=== PATIENT | male | born 1970 | race Caucasian/White ===

== ENCOUNTER 2021-06-04 18:03 | Emergency (ER) | payer BC, SELFPAY ==
[2021-06-04 18:35] VITALS: BP 187/105; PULSE 77; RESP 16; TEMP 36.8; O2SAT 98
--- NOTE | 2021-06-04 20:40 | W.ED.GENADLT ---
HPI - General Adult General: Chief complaint: General Medical Stated complaint: Lt Foot and Lt fingers numb Time Seen by Provider: 06/04/21 20:40 History of Present Illness: HPI narrative: Patient comes in today with complaints of numbness to his left great toe for about 1 to 2 weeks. Patient states that he has been concerned about this for the last 2 weeks but has yet to be seen by a provider. Tonight patient noticed some numbness and tingling in bilateral fingers while thinking about his toe. Patient does admit to having anxiety issues. Patient reports a recent history of a PCP visit R[facility] [place] and was reported to have no significant abnormalities on his exam at that time. Patient appears well tonight. Patient does report a history of cellulitis and peripheral vascular disease. Review of Systems General: Reports: 10 or more systems reviewed and unremarkable except in HPI and below Neuro: Reports: other (Numbness to the left foot.) Physical Exam Const: COMMON NORMALS: no acute distress and patient oriented x3 GENERAL APPEARANCE: cooperative HENMT: COMMON NORMALS: normocephalic and Normal external nose present HEAD & SCALP: normal to inspection and normocephalic NOSE: Normal external nose present MOUTH: Normal oral and palatal mucosa present Eye: GENERAL EYE: appearance normal, both eyes and all related structures Neck/C-Spine: COMMON NORMALS: full ROM Lymph: LYMPHATIC: no lymphadenopathy noted Chest: COMMONS NORMALS: normal inspection of the chest Resp: COMMON NORMALS: normal respiratory effort EFFORT & INSPECTION: Yes able to speak in complete sentences Cardio: COMMON NORMALS: regular rate and regular rhythm RATE: regular rate RHYTHM: regular rhythm GI: COMMON NORMALS: non-tender Back/Pelvis: COMMON NORMALS: thoracic and lumbar spine normal to inspection Extremity: COMMON NORMALS: normal to inspection NARRATIVE EXTREMITY EXAM: Bilateral feet have significant pes planus, pulses are intact, prompt capillary refill is noted. Patient reports numbness to right great toe. Neuro: COMMON NORMALS: patient oriented x3 and moves all extremities Psych: COMMON NORMALS: mental status grossly normal and cooperative Skin: COMMON NORMALS: no rashes or lesions noted GENERAL SKIN EXAM: no rashes or lesions noted Course Vital Signs: Vital signs: Vital Signs Temperature 98.3 F 06/04/21 18:35 Pulse Rate 69 06/04/21 22:00 Respiratory Rate 18 06/04/21 22:00 Blood Pressure 163/106 06/04/21 22:00 Pulse Oximetry 98 06/04/21 22:00 MDM - General Adult MDM Narrative: Medical decision making narrative: Patient comes in today for concerns of left foot numbness. Patient reports about 2 weeks ago he started having numbness in the great toe of the left foot. Over the past 2 weeks it seems to have gotten worse to the point that he is truly worried about it and has had increased anxiety. On exam patient has good pulses in the dorsal pedis. No significant swelling or redness is noted to the feet. Patient has equal strength in all extremities. No focal neural deficits were noted. Vital signs were normal except for some elevation in blood pressure. Differential diagnosis includes but not limited to anxiety, peripheral neuropathy, Winters's neuroma, sciatica, Raynaud's syndrome. Laboratory values were collected and no significant abnormalities were noted except for some sodium running at 132. Patient does report a history of hyponatremia which is chronic for him. Ultrasound of the left lower leg indicated no DVT. CRP was normal. I believe patient probably has a Winters's neuroma or other anatomical problem to his foot due to his pes planus. I would also suggest the patient have neurology for electro conductive evaluation for possible tibial tunnel syndrome versus a lumbar radiculopathy. Lab Data: Labs: Lab Results 06/04/21 06/04/21 21:17 21:17 WBC 4.8 10^3/uL 10^3/ uL (4.0-10.0) RBC 4.29 10^6/uL 10^6 /uL (4.1-5.3) Hgb 13.6 g/dL g/dL (11.7-16.6) Hct 39.6 % L % (42.0-52.0) MCV 92.3 fl fl (80-94) MCH 31.7 pg pg (28.0-34.0) MCHC 34.3 g/dL g/dL (30.0-36.0) RDW 12.5 % % (12.1-15.1) Plt Count 297 10^3/cmm 10^3 /cmm (130-400) MPV 9.2 fL fL (7.4-10.4) Neut % (Auto) 71.3 % % Lymph % (Auto) 18.7 % % Smith % (Auto) 8.6 % % Eos % (Auto) 0.8 % % Baso % (Auto) 0.4 % % Neut # (Auto) 3.38 10^3/uL 10^3 /uL (1.8-7.7) Lymph # (Auto) 0.9 10^3/uL 10^3/ uL (0.8-4.8) Smith # (Auto) 0.4 10^3/uL 10^3/ uL (0.2-0.9) Eos # (Auto) 0.0 10^3/uL 10^3/ uL (0.0-0.8) Baso # (Auto) 0.0 10^3/uL 10^3/ uL (0.0-0.1) Nucleated RBC % (a uto) 0 % % Nucleated RBCs # 0.0 /100WBC /100W BC Sodium 132 mmol/L L mmol /L (136-145) Potassium 4.6 mmol/L mmol/L (3.5-5.1) Chloride 96 mmol/L L mmol/ L (98-107) Carbon Dioxide 23 mmol/L mmol/L (22-29) Anion Gap 17.6 (5-19) BUN 13 mg/dL mg/dL (6-20) Creatinine 0.6 mg/dL L mg/dL (0.7-1.2) GFR Calculation 140.9 mL/min H mL /min (90-130) Glucose 92 mg/dL mg/dL (65-115) Calculated Osmolal ity 274 mOsm/kg L mOs m/kg (285-295) Calcium 8.8 mg/dL mg/dL (8.5-10.5) Total Bilirubin 0.4 mg/dL mg/dL (0.15-1.2) AST 17 U/L U/L (0-40) ALT 18 U/L U/L (0-41) Alkaline Phosphata se 70 IU/L IU/L (40-130) C-Reactive Protein 1.0 mg/L mg/L (0.0-4.9) Total Protein 6.9 g/dL g/dL (6.6-8.7) Albumin 4.5 g/dL g/dL (3.5-5.2) Globulin 2.4 g/dL g/dL (1.3-4.6) Discharge Plan Discharge Patient Disposition: Home Clinical Impression: Numbness of left foot Condition: Stable Discharge Orders: Discharge ED (Routine); Ordered 06/04/21 Ordered By: Crescencio Soliman Discharge Diet: Usual diet Discharge Activity: Increase activity as tolerated Patient Instructions: Paresthesia (ED) Activity Restrictions/Additional Instructions: Home and rest. Activity as tolerated. Continue with routine medications and treatments as directed. Follow-up with primary care as needed. Return to the ER for worsening symptoms or new concerns. Case management will contact you regarding follow-up appointment with typesetting supervisor and neurologist for concerns. Coding Level of Care Code ED Appliance Assembler for [facility] Fwd Exam Comprehensive
[2021-06-04 21:00] VITALS: BP 156/97; PULSE 68; RESP 16; O2SAT 95
--- NOTE | 2021-06-04 21:04 | USR_ITS ---
PROCEDURE INFORMATION: Exam: US Duplex Left Lower Extremity Veins, Limited Exam date and time: 06/04/2021 9:04 PM Age: 51 years old Clinical indication: Condition or disease; Other: History of vasculitis 2019; History of recurrent cellulitis beginning 2012 with 5-10 courses of antibiotics. C/O left foot numbness today. ; Additional info: Numbness, history of vasculitis 2019; History of recurrent cellulitis beginning 2012 with 5-10 courses of antibiotics. No history of dvt per patient. TECHNIQUE: Imaging protocol: Real-time Duplex ultrasound of the Left Lower Extremity with 2-D clark scale, color Doppler flow and spectral waveform analysis with image documentation. Limited exam focused on the left lower extremity veins. COMPARISON: No relevant prior studies available. FINDINGS: Left deep veins: Unremarkable. The common femoral, femoral, proximal profunda femoral and popliteal veins are patent without thrombus. Normal Doppler waveforms. Normal compressibility and/or augmentation response. Left superficial veins: Unremarkable. Saphenofemoral junction is patent without thrombus. Soft tissues: Unremarkable. US/CV venous duplex [facility] [id number] IMPRESSION: No evidence of deep vein thrombosis.
[2021-06-04 21:25] LABS: Basophils % 0.4 %; Eosinophils % 0.8 %; Hematocrit 39.6 % (42.0-52.0); Hemoglobin 13.6 g/dL (11.7-16.6); Lymphocytes # 0.9 10^3/uL (0.8-4.8); Lymphocytes % 18.7 %; Mean Corpuscular HGB Conc 34.3 g/dL (30.0-36.0); Mean Corpuscular Hemoglobin 31.7 pg (28.0-34.0); Mean Corpuscular Volume 92.3 fl (80-94); Mean Platelet Volume 9.2 fL (7.4-10.4); Monocytes # 0.4 10^3/uL (0.2-0.9); Monocytes % 8.6 %; Neutrophils # 3.38 10^3/uL (1.8-7.7); Neutrophils % 71.3 %; Nucleated Red Blood Cells % 0 %; Platelet Count 297 10^3/cmm (130-400); Red Blood Count 4.29 10^6/uL (4.1-5.3); Red Cell Distribution Width 12.5 % (12.1-15.1); White Blood Count 4.8 10^3/uL (4.0-10.0)
[2021-06-04 21:44] LABS: Alanine Aminotransferase 18 U/L (0-41); Albumin Level 4.5 g/dL (3.5-5.2); Alkaline Phosphatase 70 IU/L (40-130); Anion Gap 17.6 (5-19); Aspartate Amino Transferase 17 U/L (0-40); Blood Urea Nitrogen 13 mg/dL (6-20); Calcium 8.8 mg/dL (8.5-10.5); Carbon Dioxide 23 mmol/L (22-29); Chloride 96 mmol/L (98-107); Globulin 2.4 g/dL (1.3-4.6); Glomerular Filtration Rate 140.9 mL/min (90-130); Glucose 92 mg/dL (65-115); Osmolality Calculated 274 mOsm/kg (285-295); Potassium 4.6 mmol/L (3.5-5.1); Sodium 132 mmol/L (136-145); Total Bilirubin 0.4 mg/dL (0.15-1.2); Total Protein 6.9 g/dL (6.6-8.7)
[2021-06-04 22:00] VITALS: BP 163/106; PULSE 69; RESP 18; O2SAT 98
--- NOTE | 2021-06-05 08:31 | DCPLANNER ---
Addendum entered by Velia Mckinnon 06/05/21 08:36: natural resources manager also had message to schedule a follow up appointment for patient with neurology. natural resources manager emailed patients information to the neurology clinic. Patients information will be printed for review. Clinic will call patient with appointment information. Original Note: natural resources manager had message to schedule a follow up appointment for patient with ortho. natural resources manager called the ortho clinic, spoke with Diane, gave clinic patients information. natural resources manager was told that patients information would be printed and reviewed. Clinic will call patient with appointment information.
--- NOTE | 2021-06-07 07:15 | DCPLANNER ---
Patient has a follow up appointment scheduled for Saturday, July 18, 2020 at 10:[address] Laguerre. Clinic will call patient with appointment information.
--- NOTE | 2021-06-07 07:22 | DCPLANNER ---
Addendum entered by Velia Mckinnon 09/21/21 12:50: Patient had a follow up appointment scheduled with Dr. Verde office - appointment was cancelled. Addendum entered by Velia Mckinnon 08/02/21 16:52: Patient had a follow up appointment scheduled for 07.18.21 with neurology - appointment was rescheduled for 09.17.21. Addendum entered by Velia Mckinnon 08/02/21 16:22: Patient had a follow up appointment scheduled for 07.25.21 with ortho - this appointment was rescheduled. Original Note: Patient has a follow up appointment scheduled for Saturday, July 25, 2020 at 10:[address] Munoz at ortho. Clinic will call patient with appointment information.
== END 2021-06-04 22:33 | disposition home or self-care (01) ==
PROVIDERS: Emergency Provider Nurse Practitioner Family
DX: R20.0 Anesthesia of skin (principal)
CPT/HCPCS: 80053; 85025; 86140; 93971; 99283

== ENCOUNTER → 2022-10-09 15:47 | Outpatient (BNVA) | payer BC, SELFPAY | PROVIDERS: Visit Provider Podiatrist Foot & Ankle Surgery | DX: M77.51 Other enthesopathy of right foot and ankle (principal); M77.42 Metatarsalgia, left foot; Z87.39 Personal history of other diseases of the musculoskeletal system and connective tissue | CPT/HCPCS: 73610 ==

== ENCOUNTER 2023-11-15 01:48 | Emergency (ER) | payer BC, SELFPAY ==
[2023-11-15 01:57] VITALS: BP 184/96; PULSE 74; RESP 13; O2SAT 99; BMI 27.1
[2023-11-15 03:00] VITALS: BP 175/112; PULSE 79; RESP 16; O2SAT 99
[2023-11-15 03:00] LABS: Basophils % 0.6 %; Eosinophils % 0.8 %; Hematocrit 34.5 % (37-53); Lymphocytes % 19.9 %; Mean Corpuscular HGB Conc 35.9 g/dL (30-55); Mean Corpuscular Hemoglobin 32.2 pg (27-33); Mean Corpuscular Volume 89.6 fl (82-101); Monocytes # 0.4 10^3/uL (0.2-0.9); Neutrophils % 71.7 %; Nucleated Red Blood Cells % 0 %; Platelet Count 297 10^3/cmm (157-399); Red Blood Count 3.85 10^6/uL (3.85-5.65); Red Cell Distribution Width 12.4 % (12.1-15.1); White Blood Count 5.02 10^3/uL (3.29-11.43)
--- NOTE | 2023-11-15 03:07 | CTR_ITS ---
PROCEDURE INFORMATION: Exam: CT Abdomen And Pelvis With Contrast Exam date and time: 11/15/2023 3:41 AM Age: 53 years old Clinical indication: Abdominal pain; Patient HX: C/O epigastric pain. History of umbilical hernia. ; Additional info: Epigastric abdominal pain TECHNIQUE: Imaging protocol: Computed tomography of the abdomen and pelvis with contrast. Radiation optimization: All CT scans at this facility use at least one of these dose optimization techniques: automated exposure control; mA and/or kV adjustment per patient size (includes targeted exams where dose is matched to clinical indication); or iterative reconstruction. Contrast material: OMNI 350; Contrast volume: 100 ml; Contrast route: INTRAVENOUS (IV); COMPARISON: [place] [id number] 06/04/2021 9:37 PM RADIATION DOSE METRICS: Total DLP (mGy-cm): 560.16 FINDINGS: Lungs: Few foci of atelectasis of the lung bases is seen. Heart: Base of heart is unremarkable as visualized. Liver: Normal. No mass. Gallbladder and bile ducts: Normal. No calcified stones. No ductal dilation. Pancreas: Mild fatty atrophy of the pancreas. Spleen: Few splenules are noted. Adrenal glands: Normal. No mass. Kidneys and ureters: lobulation of the bilateral kidneys are seen. Bilateral extrarenal pelves. Stomach and bowel: Unremarkable. No obstruction. No mucosal thickening. Appendix: No evidence of appendicitis. Intraperitoneal space: Unremarkable. No free air. No significant fluid collection. Vasculature: Few scattered foci of calcified atherosclerotic disease is noted. Calcified pelvic phleboliths are noted. Lymph nodes: Unremarkable. No enlarged lymph nodes. Urinary bladder: Urinary bladder is significantly distended with wall thickening and mild surrounding inflammatory change. Reproductive: Prostate appears enlarged. Bones/joints: Diffuse degenerative change of the visualized osseous structures, mild. Soft tissues: Midline ventral superior periumbilical hernia is seen and measures 7.2 x 3.0 x 9.3 cm. The fascial defect measures 5.6 x 2.8 cm. Within the hernia sac is a loop of small bowel which is not dilated, however is fluid-filled and demonstrates mild thickening of the grimm. CT/CT abdomen pelvis w con* [id number] IMPRESSION: 1. Midline ventral superior periumbilical hernia with mild inflamed loop of bowel, however no evidence of obstruction. Further details above. 2. Findings concerning for cystitis with possible bladder outlet obstruction. Correlate with laboratory findings and physical exam. 3. Prostatomegaly. Correlate with PSA.
[2023-11-15] MEDS: ondansetron 2 mg/ML SDV 2 mL 4 MG IVP (03:13)
[2023-11-15] MEDS: LORazepam 2 mg/mL INJ 10 mL MDV 1 MG IVP (03:18)
[2023-11-15 03:20] LABS: Alanine Aminotransferase 26 U/L (0-41); Albumin Level 4.3 g/dL (3.5-5.2); Alkaline Phosphatase 58 U/L (40-130); Anion Gap 14.2 (5-19); Aspartate Amino Transferase 23 U/L (0-40); Blood Urea Nitrogen 9 mg/dL (6-20); Calcium 8.7 mg/dL (8.5-10.5); Carbon Dioxide 25 mmol/L (22-29); Chloride 87 mmol/L (98-107); Creatinine Clr Calc Pharmacy 139.7225; Globulin 2.5 g/dL (1.3-4.6); Glomerular Filtration Rate 117.1 mL/min (90-130); Glucose 100 mg/dL (65-115); Lipase 22 U/L (13-60); Osmolality Calculated 253 mOsm/kg (285-295); Potassium 4.2 mmol/L (3.5-5.1); Sodium 122 mmol/L (136-145); Total Bilirubin 0.5 mg/dL (0.15-1.2); Total Protein 6.8 g/dL (6.6-8.7)
[2023-11-15 03:20] LABS: Add Urine Microscopic? NO; Charge for UA Resulting for Rev
--- NOTE | 2023-11-15 03:31 | ED_ITS ---
HPI - Abdominal Pain 2 General: Chief Complaint: Abdominal Pain Stated Complaint: severe abd pain alternating Time Seen by Provider: 11/15/23 02:53 History of Present Illness: 53-year-old male gentleman with no prior history of belly surgery. He presents with generalized abdominal pain for the last 3 to 4 days. He states that he has a history of IBS, and takes Linzess for this. He has been using a proton pump inhibitor with some relief. He notes a foul taste in his mouth at times. Associated Symptoms: Reports nausea; Denies chills, diarrhea, fever(s), hematuria, melena and vomiting Review of Systems 2 General: Denies: 10 or more systems reviewed and unremarkable except in HPI and below Const: Denies: fever(s) or chills ENMT: Denies: throat pain Card: Denies: chest pain GI: Reports: abdominal pain and nausea; Denies: vomiting, diarrhea or melena : Denies: difficulty urinating or hematuria Physical Exam 2 Const: COMMON NORMALS: no acute distress GENERAL APPEARANCE: cooperative; not ill appearing and not frail appearing HENMT: COMMON NORMALS: normocephalic, atraumatic and Normal external nose present HEAD & SCALP: normocephalic and atraumatic FACE & SINUS: normal facial exam and face symmetric NOSE: Normal external nose present Eye: COMMON NORMALS: Equal, round and reactive pupils present and EOMs intact bilaterally PUPIL: Yes Equal, round and reactive pupils present Neck/C-Spine: GENERAL: Yes trachea midline Chest: CHEST: Yes Symmetrical chest wall rise Resp: COMMON NORMALS: normal respiratory effort, No retractions, No use of accessory muscles and clear to auscultation bilaterally AUSCULTATION: clear to auscultation bilaterally Cardio: COMMON NORMALS: regular rate and regular rhythm RATE: regular rate RHYTHM: regular rhythm GI: COMMON NORMALS: Normal to inspection, nondistended, normoactive bowel sounds present PALPATION: Yes Tenderness to palpation present (GI) (epigastric) Details: LLQ Extremity: COMMON NORMALS: no pedal edema Neuro: MISSY COMA SCALE: document GCS findings [place] coma scale eye opening: Spontaneous [place] coma scale verbal response: Orientated Missy coma scale motor response: Obey commands Missy coma scale total score: 15 S ENSORY EXAM: Yes extremities (intact) Psych: COMMON NORMALS: speech normal SPEECH: Yes normal speech Skin: COMMON NORMALS: no rashes or lesions noted GENERAL SKIN EXAM: no rashes or lesions noted Course 2 Vital Signs: Vital signs: Vital Signs Pulse Rate 76 11/15/23 05:19 Respiratory Rate 16 11/15/23 05:19 Blood Pressure 159/104 11/15/23 05:19 Pulse Oximetry 97 11/15/23 05:19 Oxygen Delivery Me thod Room Air 11/15/23 01:57 MDM - Abdominal Pain Medical Decision Making The patient is moderately hypertensive. White blood cell count is 5. CRP is 3. Sodium is 122, which is significantly low for this patient. However, he seems to be mentating well, essentially normally. he relates to me that he has had chronic low sodium levels. Urinalysis is negative. Abdominal CT reveals a ventral supra umbilical hernia with some mild inflammation in the bowel contained within the hernia. There is no obstruction. Could be causing his pain. There is mention of potential cystitis with bladder outlet obstruction, but the patient has a negative, completely clean urinalysis. We will treat the patient for enteritis and have him follow-up closely as an outpatient. He will need sodium rechecked as well at the beginning of the week. Lab Data 11/15/23 02:54 11/15/23 02:54 Labs/Radiology: Radiology Impressions Abdomen/Pelvis CT 11/15/23 03:07 IMPRESSION: 1. Midline ventral superior periumbilical hernia with mild inflamed loop of bowel, however no evidence of obstruction. Further details above. 2. Findings concerning for cystitis with possible bladder outlet obstruction. Correlate with laboratory findings and physical exam. 3. Prostatomegaly. Correlate with PSA. Laboratory Results WBC 5.02 10^3/uL (3.29-11.43) 11/15/23 02:54 RBC 3.85 10^6/uL (3.85-5.65) 11/15/23 02:54 Hgb 12.40 g/dL (11.27-16.99) 11/15/23 02:54 Hct 34.5 % (37-53) L 11/15/23 02:54 MCV 89.6 fl (82-101) 11/15/23 02:54 MCH 32.2 pg (27-33) 11/15/23 02:54 MCHC 35.9 g/dL (30-55) 11/15/23 02:54 RDW 12.4 % (12.1-15.1) 11/15/23 02:54 Plt Count 297 10^3/cmm (157-399) 11/15/23 02:54 MPV 9.0 fL (7.4-10.4) 11/15/23 02:54 Neut % (Auto) 71.7 % 11/15/23 02:54 Lymph % (Auto) 19.9 % 11/15/23 02:54 Creek % (Auto) 7.0 % 11/15/23 02:54 Eos % (Auto) 0.8 % 11/15/23 02:54 Baso % (Auto) 0.6 % 11/15/23 02:54 Neut # (Auto) 3.60 10^3/uL (1.8-7.7) 11/15/23 02:54 Lymph # (Auto) 1.0 10^3/uL (0.8-4.8) 11/15/23 02:54 Creek # (Auto) 0.4 10^3/uL (0.2-0.9) 11/15/23 02:54 Eos # (Auto) 0.0 10^3/uL (0.0-0.8) 11/15/23 02:54 Baso # (Auto) 0.0 10^3/uL (0.0-0.1) 11/15/23 02:54 Nucleated RBC % (auto) 0 % 11/15/23 02:54 Nucleated RBCs # 0.0 /100WBC 11/15/23 02:54 Sodium 122 mmol/L (136-145) L 11/15/23 02:54 Potassium 4.2 mmol/L (3.5-5.1) 11/15/23 02:54 Chloride 87 mmol/L (98-107) L 11/15/23 02:54 Carbon Dioxide 25 mmol/L (22-29) 11/15/23 02:54 Anion Gap 14.2 (5-19) 11/15/23 02:54 BUN 9 mg/dL (6-20) 11/15/23 02:54 Creatinine 0.7 mg/dL (0.7-1.2) 11/15/23 02:54 GFR Calculation 117.1 mL/min (90-130) 11/15/23 02:54 Glucose 100 mg/dL (65-115) 11/15/23 02:54 Calculated Osmolality 253 mOsm/kg (285-295) L 11/15/23 02:54 Calcium 8.7 mg/dL (8.5-10.5) 11/15/23 02:54 Total Bilirubin 0.5 mg/dL (0.15-1.2) 11/15/23 02:54 AST 23 U/L (0-40) 11/15/23 02:54 ALT 26 U/L (0-41) 11/15/23 02:54 Alkaline Phosphatase 58 U/L (40-130) 11/15/23 02:54 C-Reactive Protein 3.0 mg/L (0.0-4.9) 11/15/23 02:54 Total Protein 6.8 g/dL (6.6-8.7) 11/15/23 02:54 Albumin 4.3 g/dL (3.5-5.2) 11/15/23 02:54 Globulin 2.5 g/dL (1.3-4.6) 11/15/23 02:54 Lipase 22 U/L (13-60) 11/15/23 02:54 Urine Color Colorless (Yellow) 11/15/23 03:08 Urine Appearance Clear (CLEAR) 11/15/23 03:08 Urine pH 7 (5-7) 11/15/23 03:08 Ur Specific Addis 1.005 (1.005-1.030) 11/15/23 03:08 Urine Protein Neg (Negative) 11/15/23 03:08 Urine Glucose (UA) Norm (Normal) 11/15/23 03:08 Urine Ketones Negative (Negative) 11/15/23 03:08 Urine Blood Neg (Negative) 11/15/23 03:08 Urine Nitrate Negative (Negative) 11/15/23 03:08 Urine Bilirubin Neg (Negative) 11/15/23 03:08 Urine Urobilinogen Neg mg/dL (Negative) 11/15/23 03:08 Ur Leukocyte Esterase Negative (Negative) 11/15/23 03:08 All radiology interpretation(s) finalized by discharge Discharge Plan Discharge Patient Disposition: Home Clinical Impression: Acute hyponatremia, Hernia, ventral, Enteritis Condition: Stable Prescriptions: New hydrocodone-acetaminophen 5-325 mg tablet 1 tab PO Q8H PRN (Reason: pain) Qty: 7 0RF ondansetron 4 mg tablet,disintegrating 4 mg PO Q6H PRN (Reason: nausea and vomiting) Qty: 14 0RF metronidazole 500 mg tablet 500 mg PO TID Qty: 7 0RF Discharge Orders: Discharge ED (Routine); Ordered 11/15/23 Ordered By: Emmanuel Kwok Patient Instructions: Opioid Safety, Pain Management Activity Restrictions/Additional Instructions: Antibiotics as directed. Pain and nausea medication as needed. Follow a clear liquid diet for the next 24 hours. Advance as tolerated. Return for worsening pain despite treatment, fever greater than 100 despite treatment, vomiting liquids or medications, blood in the stool, any other concerning symptoms. See your doctor next week. You will require repeat sodium testing, as your sodium level was quite low here. Coding Level of Care Code ED Dirt Contractor for [facility] Beebe
[2023-11-15 03:36] LABS: Urine Appearance Clear (CLEAR); Urine Color Colorless (Yellow); pH Urine 7 (5-7)
[2023-11-15 03:37] LABS: Bilirubin Urine Neg (Negative); Blood Urine Neg (Negative); Glucose Urine UA Norm (Normal); Ketones Urine Negative (Negative); Leukocyte Esterase Urine Negative (Negative); Nitrate Urine Negative (Negative); Protein Urine Neg (Negative); Specific Gravity, Urine 1.005 (1.005-1.030); Urobilinogen Urine Neg (Negative)
[2023-11-15] MEDS: iohexol 350 mg/mL 500 mL Btl (per mL) IV (03:42)
[2023-11-15 04:12] VITALS: BP 158/101; PULSE 77; RESP 16; O2SAT 96
[2023-11-15 04:44] VITALS: BP 180/108; PULSE 90; RESP 18; O2SAT 97
[2023-11-15 05:19] VITALS: BP 159/104; PULSE 76; RESP 16; O2SAT 97
== END 2023-11-15 05:30 | disposition home or self-care (01) ==
PROVIDERS: Emergency Provider Emergency Medicine
DX: K43.9 Ventral hernia without obstruction or gangrene (principal); K52.9 Noninfective gastroenteritis and colitis, unspecified; E87.1 Hypo-osmolality and hyponatremia
CPT/HCPCS: 74177; 80053; 81003; 83690; 85025; 86140; 96374; 96375; 99285; J2060; J2405; Q9967

== ENCOUNTER 2024-11-22 09:16 | Inpatient (IN) | payer BC, SELFPAY ==
[2024-11-22] VITALS (7 sets, daily range): BP systolic 77–248; BP diastolic 44–146; PULSE 73–107; RESP 16–24; TEMP 37.3–37.5; O2SAT 95–98; BMI 32.5
--- NOTE | 2024-11-22 09:37 | XRR_ITS ---
PROCEDURE INFORMATION: Exam: XR Chest Exam date and time: 11/22/2024 9:39 AM Age: 54 years old Clinical indication: Other: AMS TECHNIQUE: Imaging protocol: Radiologic exam of the chest. Views: 1 view. COMPARISON: CT abdomen pelvis w con* [id number] 11/15/2023 3:41 AM FINDINGS: Lungs: Unremarkable. No consolidation. Pleural spaces: Unremarkable. No pleural effusion. No pneumothorax. Heart/Mediastinum: Unremarkable. No cardiomegaly. Bones/joints: Unremarkable. XR/XR chest 1V portable [id number] IMPRESSION: No acute findings.
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
--- NOTE | 2024-11-22 09:43 | CTR_ITS ---
PROCEDURE INFORMATION: Exam: CT Head Without Contrast Exam date and time: 11/22/2024 10:24 AM Age: 54 years old Clinical indication: Psychosis or psychotic disorder; Unspecified; Additional info: AMS TECHNIQUE: Imaging protocol: Computed tomography of the head without contrast. Radiation optimization: All CT scans at this facility use at least one of these dose optimization techniques: automated exposure control; mA and/or kV adjustment per patient size (includes targeted exams where dose is matched to clinical indication); or iterative reconstruction. COMPARISON: No relevant prior studies available. RADIATION DOSE METRICS: Total DLP (mGy-cm): 1209.18 FINDINGS: Brain: Normal. No hemorrhage. Unremarkable white matter. No mass effect. Cerebral ventricles: No ventriculomegaly. Paranasal sinuses: Visualized sinuses are unremarkable. No fluid levels. Mastoid air cells: Visualized mastoid air cells are well aerated. Bones: Unremarkable. No acute fracture. Soft tissues: Unremarkable. CT/CT head wo con* [id number] IMPRESSION: No acute intracranial abnormality.
[2024-11-22 09:56] LABS: Basophils % 0.3 %; Eosinophils % 0.3 %; Hematocrit 32.8 % (37-53); Lymphocytes # 0.7 10^3/uL (0.8-4.8); Lymphocytes % 9.9 %; Mean Corpuscular HGB Conc 34.5 g/dL (30-55); Mean Corpuscular Hemoglobin 31.5 pg (27-33); Mean Corpuscular Volume 91.4 fl (82-101); Mean Platelet Volume 9.2 fL (7.4-10.4); Monocytes # 0.6 10^3/uL (0.2-0.9); Neutrophils # 6.03 10^3/uL (1.8-7.7); Neutrophils % 81.4 %; Nucleated Red Blood Cells % 0 %; Platelet Count 304 10^3/cmm (157-399); Red Blood Count 3.59 10^6/uL (3.85-5.65); Red Cell Distribution Width 12.9 % (12.1-15.1)
[2024-11-22 10:12] LABS: Alanine Aminotransferase 28 U/L (0-41); Albumin Level 4.7 g/dL (3.5-5.2); Alkaline Phosphatase 81 U/L (40-130); Anion Gap 18.9 (5-19); Aspartate Amino Transferase 49 U/L (0-40); Blood Urea Nitrogen 12 mg/dL (6-20); Calcium 9.6 mg/dL (8.5-10.5); Carbon Dioxide 24 mmol/L (22-29); Chloride 93 mmol/L (98-107); Creatinine Clr Calc Pharmacy 116.8025; Globulin 2.8 g/dL (1.3-4.6); Glomerular Filtration Rate 87.3 mL/min (90-130); Glucose 95 mg/dL (65-115); Osmolality Calculated 274 mOsm/kg (285-295); Potassium 3.9 mmol/L (3.5-5.1); Sodium 132 mmol/L (136-145); Total Bilirubin 0.7 mg/dL (0.15-1.2); Total Protein 7.5 g/dL (6.6-8.7)
[2024-11-22 10:22] LABS: Acetaminophen < 5.0 ug/mL (10-30); Alcohol Level < 10 mg/dL (0-10); Salicylate < 0.3 mg/dL (3-10)
[2024-11-22] MEDS: hyDRALAzine 20 mg/mL INJ 1 mL 10 MG IVP (10:44)
[2024-11-22] MEDS: CLONazepam 0.5 mg Tablet PO (11:00)
[2024-11-22 11:19] LABS: Bilirubin Urine Negative (Negative); Blood Urine Negative (Negative); Glucose Urine UA Trace (Normal); Ketones Urine Trace (Negative); Leukocyte Esterase Urine Negative (Negative); Nitrate Urine Negative (Negative); Protein Urine Negative (Negative); Specific Gravity, Urine 1.008 (1.005-1.030); Urine Appearance Clear (CLEAR); Urine Color Yellow (Yellow); Urobilinogen Urine 0.2 mg/dL (Negative); pH Urine 6.5 (5-7)
[2024-11-22 11:22] LABS: Add Urine Microscopic? YES; Bacteria Urine None Seen /hpf; Hyaline Casts Urine 2.05 /lpf; RBC Urine 0-2 /hpf (0-2); Squamous Epithelial Cell Urine 0-5 /hpf (0-5); WBC Urine 0-5 /hpf (0-5)
--- NOTE | 2024-11-22 11:23 | PC.NURSE ---
96 hr rights reviewed with pt @1042 with assistance of [facility] business practices officer Saad. All education reviewed with pt. Pt verbalized want to speak with an emergency contact. HS explained that once he has been medically cleared and moved to new room, he would have access to a phone. Pt copy was left with patient @bedside. Pt changed out into green paper scrubs, and urine collected for labs. No further needs at this time.
[2024-11-22 11:28] LABS: Amphetamines Screen Urine Negative (Negative); Barbiturates Screen Urine Negative (Negative); Benzodiazepines Screen Urine Positive (Negative); Cocaine Screen Urine Negative (Negative); Opiate Screen Urine Negative (Negative); PCP Screen Urine Negative (Negative); THC Screen Urine Negative (Negative)
[2024-11-22] MEDS: metoprolol tartrate 1 mg/1 mL SDV 5 mL 5 MG IVP (11:43)
[2024-11-22] MEDS: amlodipine 5 mg Tablet PO (13:25)
--- NOTE | 2024-11-22 15:20 | PC.ADMIT ---
[email or web address] [facility] Admission Note:Pt has a flight of ideas and rambles random words. If you ask him a question he will attempt to answer you, but usually goes off on another story. He jumps several stories and rambles words. His admission was kept short. He has elevated blood pressure, see mar for meds given in ER. Dr. Shin will be following the pt here on the floor according to ER. ER reports from that he has been awake for days. The patient,Lencho Barger,54 y/o, was given written information regarding hospital policies, unit procedures and contact persons. Patient's smoking status: . Vital Signs - 8 hr 11/22/24 09:33 11/22/24 10:56 11/22/24 11:44 Temperature 99.5 F Pulse Rate 105 H 107 H 99 Respiratory Rate 24 H Blood Pressure 248/146 182/101 179/108 Pulse Oximetry 95 98 96 Oxygen Delivery Method 11/22/24 12:00 11/22/24 13:27 11/22/24 14:05 Temperature Pulse Rate 83 90 90 Respiratory Rate 16 Blood Pressure 177/91 168/105 155/95 Pulse Oximetry 96 96 97 Oxygen Delivery Method Room Air 11/22/24 14:05 11/22/24 14:07 Temperature 99.2 F Pulse Rate 91 Respiratory Rate 18 Blood Pressure 143/90 Pulse Oximetry 96 Oxygen Delivery Method Room Air Room Air
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
--- NOTE | 2024-11-22 18:52 | PC.NURSE ---
V/O from Dr. hWeat for pt to do an oral b52.
[2024-11-22] MEDS: LORazepam 2 mg Tablet PO (18:58)
[2024-11-22] MEDS: haloperidol 5 mg Tablet PO (18:58)
[2024-11-22] MEDS: diphenhydrAMINE 50 mg Capsule PO (18:58)
[2024-11-23 06:00] VITALS: BP 134/91; PULSE 95; RESP 19; TEMP 37.2; O2SAT 99
[2024-11-23 09:57] VITALS: BP 134/91
[2024-11-23] MEDS: losartan 50 mg Tablet PO (09:57)
--- OUTSIDE RECORDS SUMMARY | 2024-11-23 11:55 | XMS_ITS | Encounter Summary ---
Author Organization [facility] [employer] Address [address] [place] [address] Care Team Providers Care Manager Creative Services Name Role Phone Norma Calvo MD, Esteban Araiza Primary Care Provider [phone]- [phone] Encounter Details Date Type Department Care Team (Late st Contact Info) Description 04/24/2020 Specialty Pharmacy [facility] [place] [address] [address] Teodora Cosby, PHARMACIST [address] [place] [id number] Social History Tobacco Use Types Packs/Day Years Used Date Smoking Tobacco: Never Alcohol Use Standard Drinks/Week Comments Yes 0 (1 standard drink = 0.6 oz pur e alcohol) Sex and Gender Information Value Date Recorded Sex Assigned at Not on file 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
--- OUTSIDE RECORDS SUMMARY | 2024-11-23 11:56 | XMS_ITS | Clinical Summary ---
Author Organization [facility] Address [address] [place]: Epic Prelude ADT [place] [address] Care Team Providers Care Technician Chemical Cleaning Name Role Phone Norma Calvo MD, Esteban Araiza Primary Care Provider [phone]- [phone] Allergies Active Allergy Reactions Criticality Noted Date Comments Ciprofloxacin Other (See Comments) 10/08/2016 Visual disturbance, weakness, GI disturbance, mental disturbace Ibuprofen Swelling,Other (See Comments) High 10/07/2017 Eye swelling,difficulty breathing Levofloxacin Nausea and Vomiting Low 07/17/2011 Moxifloxacin Nausea and Vomiting Low 06/06/2023 Medications temazepam (RESTORIL) 15 mg capsule Take 30 mg by mouth nightly as needed for Insomnia. 6 Active fluticasone propionate 50 mcg/actuation nasal spray,suspension Administer 2 Sprays in each nostril daily. Active OMEPRAZOLE ORAL Take 1 Capsule by mouth 1 time daily as needed. Active melatonin 3 mg Tablet Take 2 Tablets (6 mg) by mouth nightly as needed for Insomnia. 30 Tablet 1 3 Active risperiDONE (RisperDAL) 1 mg tablet Take 1 Tablet (1 mg) by mouth daily at bedtime. 30 Tablet 3 Active amLODIPine (Norvasc) 10 mg tablet Take 1 Tablet (10 mg) by mouth daily. 30 Tablet 2 3 Active linaCLOtide (LINZESS) 145 mcg capsuleIndication s:Chronic idiopathic constipation Take 1 Capsule (145 mcg) by mouth daily before breakfast. 90 Capsule 1 11/08/2024 11:41 AM CDT 03/23/20 25 Active Active Problems Problem Noted Date Diagnosed Date Ramona 07/19/2022 Hyponatremia 07/18/2022 Altered behavior 07/18/2022 Chronic idiopathic constipation 02/18/2020 Encounters Date Type Department Care Team Description 11/17/2024 External Device Data [facility]STRACTION Provider, Abstract 11/16/2024 External Device Data [facility]CTION Provider, Abstract 11/02/2024 External Device Data [facility] Provider, Abstract 10/26/2024 External Device Data [facility]STRACTION Provider, Abstract 09/15/2024 External Device Data [facility]STRACTION Provider, Abstract 09/07/2024 External Device Data [facility] ABSTRACTION Provider, Abstract 09/07/2024 External Device Data [facility] ABSTRACTION Provider, Abstract 08/31/2024 External Device Data [facility] ABSTRACTION Provider, Abstract from Last 3 Months Immunizations Immunization Administration Dates Next Due (ADACEL/BOOSTRIX)(10 YR UP) TDAP VACCINE, 0.5ML, IM 09/02/2010 Social History Tobacco Use Types Packs/Day Years Used Date Smoking Tobacco: Never Tobacco Cessation:Counseling Given: Not Answered Alcohol Use Standard Drinks/Week Comments Not Currently 0 (1 standard drink = 0.6 oz pur e alcohol) Feeling Safe Answer Date Recorded Are you in a relationship wi th someone who hurts you emotionally and/or physically? 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 Gender Identity Not on file Sexual Orientation Not on file Last Filed Vital Signs Vital Sign Reading Time Taken Comments Blood Pressure 156/89 02/16/2024 9:00 AM CDT Pulse 77 02/16/2024 9:00 AM CDT Temperature 36.4 C (97.6 F) 02/16/2024 9:00 AM CDT Respiratory Rate 16 02/16/2024 9:00 AM CDT Oxygen Saturation 98% 02/16/2024 9:00 AM CDT Inhaled Oxygen Concentration - - Weight 82.1 kg (181 lb) 02/15/2024 3:26 AM CDT Height 182.9 cm (6') 02/15/2024 3:26 AM CDT Body Mass Index 24.55 02/15/2024 3:26 AM CDT Plan of Treatment Upcoming Encounters Date Type Department Care Team (Late st Contact Info) Description 12/21/2024 2:30 PM CDT Telephone Check Up [facility] [place] [address] [place] [address] Larissa Coombs PA-C [address] [place] [address] Health Maintenance Due Date Last Done Comments HEPATITIS B VACCINES (1 of 3 - 19+ 3-dose series) 11/1986 COLORECTAL SCREENING 2013 Colorectal Cancer Screening 2013 FIT-DNA Q 3 years 2013 FIT/FOBT Q 1 year 2013 Flex Sig/CT Colonography Q 5 years 2013 ZOSTER VACCINE (1 of 2) 2018 DTAP/TDAP/TD VACCINES (2 - Td or Tdap) 09/02/2020 INFLUENZA VACCINE (#1) 2024 Insurance [facility] link bird * Guarantor: LADAN FABIAN Account Type Relation to Patient Date of Phone Billing Address Personal/Family [address] [place] [address] RX [facility] Commercial RX [employer] Commercial [facility] [employer] ACCESS Advance Directives For more information, please contact: [phone] * Default Full Code - Needs Discussion (Latest Code Status on File) Date Activated Date Inactivated Comments 02/16/2024 7:19 AM 02/16/2024 2:35 PM * Full Code Date Activated Date Inactivated Comments 07/18/2022 5:17 AM 07/21/2022 5:57 PM Care Teams Technician Chemical Cleaning Relationship Specialty Start Date End Date Esteban Green Jr., MD [address] [place] [id number] PCP - General Family Practice 01/21/18
--- OUTSIDE RECORDS SUMMARY | 2024-11-23 11:56 | XMS_ITS | Encounter Summary ---
Author Organization [facility] Address [address] [place] [address] Care Team Providers Care Special Skills Officer Name Role Phone Norma Calvo MD, Esteban Araiza Primary Care Provider [phone]- [phone] Encounter Details Date Type Department Care Team (Late st Contact Info) Description 11/17/2024 External Device Data [facility] ABSTRACTION Provider, Abstract NO ADDRESS ON FILE Social History Tobacco Use Types Packs/Day Years Used Date Smoking Tobacco: Never Alcohol Use Standard Drinks/Week Comments Not Currently 0 (1 standard drink = 0.6 oz pur e alcohol) Feeling Safe Answer Date Recorded Are you in a relationship wi th someone who hurts you emotionally and/or physically? 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 [facility] [address] [place] [address] Larissa Coombs PA-C [address] [facility] [address] [place] [address] documented as of this encounter Visit Diagnoses Not on filedocumented in this encounter Care Teams Special Skills Officer Relationship Specialty Start Date End Date Esteban Green Jr., MD [address] [place] [id number] PCP - General Family Practice 01/21/18 documented as of this encounter
--- OUTSIDE RECORDS SUMMARY | 2024-11-23 11:56 | XMS_ITS | Clinical Summary ---
Author Organization [facility] Address [address] [place] [address] Phone Care Team Providers Care Binding Nicker Name Role Phone Norma Calvo MD, Esteban Araiza Primary Care Provider [phone]- [phone] Allergies Active Allergy Reactions Criticality Noted Date Comments Ciprofloxacin Other (See Comments) 10/08/2016 Visual disturbance, weakness, GI disturbance, mental disturbace Ibuprofen Swelling,Other (See Comments) High 10/07/2017 Eye swelling,difficulty breathing Levofloxacin Nausea and Vomiting Low 07/17/2011 Medications FLUTICASONE PROPIONATE (FLONASE BOTH NOSTRIL) Administer in each nostril. Active OMEPRAZOLE ORAL Take by mouth 1 time daily as needed . Active temazepam (RESTORIL) 15 mg capsule Take 30 mg by mouth nightly as needed for Insomnia. Active linaCLOtide (LINZESS) 145 mcg capsuleIndication s:Chronic idiopathic constipation Take 1 Capsule (145 mcg) by mouth daily before breakfast. 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 Gender Identity Not on file Sexual Orientation Not on file Last Filed Vital Signs Vital Sign Reading Time Taken Comments Blood Pressure 187/103 08/24/2020 3:26 PM INSPECTOR TUBES Pulse 95 08/24/2020 3:26 PM INSPECTOR TUBES Temperature 37.1 C (98.8 F) 12/30/2019 11:23 AM CDT Respiratory Rate 20 12/30/2019 11:23 AM CDT Oxygen Saturation 97% 12/30/2019 11:23 AM CDT Inhaled Oxygen Concentration - - Weight 90.7 kg (200 lb) 08/24/2020 3:26 PM INSPECTOR TUBES Height 182.9 cm (6') 08/24/2020 3:26 PM INSPECTOR TUBES Body Mass Index 27.12 08/24/2020 3:26 PM INSPECTOR TUBES Plan of Treatment Health Maintenance Due Date Last Done Comments HEPATITIS B VACCINES (1 of 3 - 19+ 3-dose series) 11/1986 COLORECTAL SCREENING 2013 Colorectal Cancer Screening 2013 FIT-DNA Q 3 years 2013 FIT/FOBT Q 1 year 2013 Flex Sig/CT Colonography Q 5 years 2013 ZOSTER VACCINE (1 of 2) 2018 DTAP/TDAP/TD VACCINES (2 - Td or Tdap) 09/02/2020 INFLUENZA VACCINE (#1) 2024 Insurance RX [facility] Commercial RX [employer] Commercial Care Teams Binding Nicker Relationship Specialty Start Date End Date Esteban Green Jr., MD PCP - General Family Practice 01/21/18
--- OUTSIDE RECORDS SUMMARY | 2024-11-23 11:56 | XMS_ITS | Encounter Summary ---
Author Organization [facility] Address 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 Gender Identity Not on file Sexual Orientation Not on file documented as of this encounter Plan of Treatment Upcoming Encounters Date Type Department Care Team (Late st Contact Info) Description 12/21/2024 2:30 PM CDT Telephone Check Up [facility]- [place] [address] [address] [facility] [address] [place] [address] Larissa Coombs PA-C [address] [facility] [address] [place] [address] documented as of this encounter Visit Diagnoses Not on filedocumented in this encounter Care Teams Flour Distributor Relationship Specialty Start Date End Date Esteban Green Jr., MD [address] [place] [phone] PCP - General Family Practice 01/21/18 documented as of this encounter
--- OUTSIDE RECORDS SUMMARY | 2024-11-23 11:56 | XMS_ITS | Patient Health Record ---
Author Organization [facility] Address [address] [place] [address] Care Team Providers Care Electronic Design Engineer Name Role Phone Crescencio Gongora Primary Care Provider Reason For Referral No Information Plan Of Treatment No Information
--- OUTSIDE RECORDS SUMMARY | 2024-11-23 11:56 | XMS_ITS | Encounter Summary ---
Author Organization [facility] Address [address] [place] [address] Care Team Providers Care Internet Database Specialist Name Role Phone Norma Calvo MD, Esteban Araiza Primary Care Provider [phone]- [phone] Reason for Referral * Outpatient Services (Routine) - Closed Specialty Diagnoses / Procedures Referred By Contderik t Referred To Contact Diagnoses Abdominal pain, unspecified abdominal location Procedures NM HEPATOBILIARY SCAN NM HEPATOBIL W PHARM INTERV Paul Dawson MD [address] [place] [phone] Phone: tel: fax: [facility] Pre-Registration [place] CALL TO MAKE APPOINTMENT ONLY [address] [place] [address] Phone: tel: fax: Referral ID Status Reason Start Date Expiration Date V isits Requested Visits Authorized [id number] Closed [facility] TO SCHEDULE ([facility]) 02/12/2018 03/15/2019 1 1 Encounter Details Date Type Department Care Team (Late st Contact Info) Description 05/13/2018 Ancillary Orders 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 No common bile duct obstruction. This laboratory has been accredited by the Intersocietal Commission for the Accreditation of Nuclear Medicine Laboratories (IAC Nuclear/PET). Narrative 05/13/2018 5:18 PM REAL ESTATE BROKER NM HEPATOBILIARY SCAN HISTORY: abd pain COMPARISON: PROCEDURE: Following the intravenous administration of 5.5 mCi of technetium 99m Choletec, planar images of the abdomen were obtained in anterior projection for 60 minutes. 8 oz of Ensure Plus was given. FINDINGS: The liver parenchyma shows normal concentration of tracer. Tracer accumulation in the common bile duct and gallbladder starts being visualized by 10 minutes of imaging. Tracer accumulation in the small bowel starts being visualized by 60 minutes of imaging.Gallbladder region of interest time-activity curve derived ejection fraction is 91%, with normal being greater than 35%. Procedure Note Daniel Beaulieu MD - 05/13/2018 NM HEPATOBILIARY SCAN HISTORY: abd pain COMPARISON: PROCEDURE: Following the intravenous administration of 5.5 mCi of technetium 99m Choletec, planar images of the abdomen were obtained in anterior projection for 60 minutes. 8 oz of Ensure Plus was given. FINDINGS: The liver parenchyma shows normal concentration of tracer. Tracer accumulation in the common bile duct and gallbladder starts being visualized by 10 minutes of imaging. Tracer accumulation in the small bowel starts being visualized by 60 minutes of imaging.Gallbladder region of interest time-activity curve derived ejection fraction is 91%, with normal being greater than 35%. IMPRESSION: No evidence of acute or chronic cholecystitis. No common bile duct obstruction. This laboratory has been accredited by the Intersocietal Commission for the Accreditation of Nuclear Medicine Laboratories (IAC Nuclear/PET). us Paul Dawson MD NM ORDERABLES Final R esult documented in this encounter Visit Diagnoses Diagnosis Abdominal pain, unspecified abdominal location Abdominal pain, unspecified abdominal location documented in this encounter Care Teams Internet Database Specialist Relationship Specialty Start Date End Date Esteban Green Jr., MD PCP - General Family Practice 01/21/18 documented as of this encounter
--- NOTE | 2024-11-23 13:00 | W.PM.NPUH&PS ---
Providers/Chief Complaint Admitting Physician: Munir Wheat MD Chief Complaint: MHE TONJA HPI NPU History of Present Illness Lencho Barger is a 54 year old male who presented to the emergency department with the following report: HPI - Psych General: Chief Complaint: Psychiatric Symptoms Stated Complaint: RANIE TONJA Time Seen by Provider: 11/22/24 09:18 Source: patient and EMS Mode of arrival: EMS Limitations: altered mental status History of Present Illness: Patient is a 54-year-old male presents to ED today via EMS for mental health evaluation. Upon arrival patient is acutely psychotic hide no history can essentially be derived from him. His speech is excessive, pressured, extremely tangential, illogical. Looking at previous documentation, he was here for a medical related complaint about a week or so ago. I was able to contact his mother who stated that over the past few days he has been very paranoid thinking that somebody is outside their home at night. He is thinking that his phone got scammed and is now being tracked. She states that he has been talking 90 miles an hour and has not slept in several days. Mother seems to think he has maybe had one similar episode to which she was hospitalized at [facility]. He has no known/diagnosed psychiatric illnesses that she is aware of and does not take any psychiatric medication. Mother does state he takes a lot of non-prescription medication . [facility] records were obtained and it looks like patient was there back in 01/2024 for almost identical symptoms. Documentation states he was hyperverbal, tangential, hyperactive, fidgety with reported insomnia. He was extremely hypertensive at that visit as well. Looking at previous vital signs here, patient has a longstanding history of chronic hypertension. He was admitted to the neuropsychiatric unit for definitive treatment of those issues. Though he has been a difficult historian as staff reports significant difficulties with his ability to tell a story and maintain calm and not be hyper energized. Ultimately he received as needed medication this morning prior to shift change due to him being so distraught and hyperkinetic and intrusive. He was somewhat tired and had to be awoken for his evaluation at on multiple attempts. He presented with a negative UDS and no medical signs to explain his mostly manic state. Once he was awoken he told a fairly disconnected story as reported below: Chief complaint Severe anxiety and insomnia following a distressing experience of feeling unsafe and isolated for several days. History of the present complaint The patient reports experiencing a severe sense of fear and anxiety, which has kept them awake for approximately 3 to 4 days. This fear was exacerbated by the loss of cellular and landline phone service, leaving them unable to call for help or drive to safety due to sleep deprivation. The patient describes constant automotive activity around their residence, which heightened their sense of insecurity and contributed to ongoing panic and alarm. These circumstances led to significant anxiety and unease, culminating in a feeling of being unsafe. The patient mentions staying with their mother, who cannot drive, and expresses concern about their own ability to drive safely due to sleep loss. They recount a situation where they felt compelled to stay awake for several days due to the perceived threat and lack of communication options. The patient did not voluntarily come to the hospital; they were placed on a hold, although they are unsure who initiated it, suspecting it might have been their mother. The patient has a history of a previous psychiatric hospital admission in January of the previous year. This admission followed the of their father in March 2023, which was described as agonizing and devastating. The loss was particularly difficult due to the close relationship with their father, whom they regarded as a central figure in their life. Following this loss, the patient stayed with their mother, experiencing a dark and grieving period marked by feelings of instability. The patient reports having rapid speech and discussing various topics quickly when under severe duress and sleeplessness. This has occurred only under extreme circumstances since 2022. They describe feeling exhausted due to medication given during the current hospitalization and note dehydration since being admitted. The patient has not been working for some time but typically would return to [place] for work or other activities. They survive financially through an investment account. The patient has no history of marriage or biological children but has had serious relationships. 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 The patient identifies as Samaritan and is a person of joey. They have no history of addiction, smoking, drinking, or marijuana use. They report that rapid speech occurs only under extreme duress and sleeplessness, which has happened since 2022 following significant stressors such as the loss of their father. Mental health history Reported a previous hospitalization in a psychiatric facility in January 2024. Experienced significant emotional distress following the of father in March 2023, which was described as a life-altering trauma. No history of psychiatric hospitalizations prior to 2022. Rapid speech and heightened anxiety noted during periods of severe stress and sleep deprivation, first occurring in 2022. No history of addiction, smoking, drinking, or cannabis use. No current psychiatric medications. Social history Staying with mother since the loss of father in March 2023. No employment mentioned, but survives on an investment account. No history of marriage or biological children. 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 Identifies as a [employer]ar[place] and a person of joey. No history of addiction, smoking, drinking, or cannabis use. No service. No explicit mention of exercise or diet. Meds NPU Home Medications ?Medication ?Instructions ?Recorded ?Confirmed ?Last Taken ?Type hydroxyzine HCl 25 mg tablet 25 mg PO QID PRN Anxiety 11/22/24 11/22/24 Unknown History linaclotide 145 mcg capsule 145 mcg PO DAILY 11/22/24 11/22/24 Unknown History (Linzess) losartan 50 mg tablet 50 mg PO DAILY 11/22/24 11/22/24 Unknown History temazepam 15 mg capsule 30 mg PO BEDTIME 11/22/24 11/22/24 Unknown History Allergies Allergy/AdvReac Type Severity Reaction Status Date / Time moxifloxacin (From Avelox) Allergy Severe rash, Verified 04/10/23 16:18 dizziness, difficulty breathing ciprofloxacin (From Cipro) Allergy ALGY-Difficulty Verified 04/10/23 16:12 Swallowing ibuprofen Allergy ALGY-Swell Verified 04/10/23 16:12 Lip/Tongue/Throat levofloxacin Allergy ALGY-Difficulty Verified 04/10/23 16:12 Swallowing Mental Status Exam MSE Comments: This is an overweight versus obese white male in hospital scrubs with limited grooming and eye contact. No abnormal movements except for psychomotor agitation. Cooperative with exam in moderate distress. Speech was increased rate and volume and somewhat pressured. Mood described as somewhat down about the loss of his father but otherwise tired, affect congruent and slightly energized. Thought process organized. Thought content: Patient denied suicidal or homicidal ideation, there were no delusions noted or reported, but he did express some reports of circumstances surrounding his admission that seem they could be delusional in nature, he denied current auditory or visual hallucinations but reported some automotive activity outside of his house that led him to have some concerns about safety. Stressors include the of his father and his mother being alone and he reports needing some assistance from him. Reports severe anxiety and unease, contributing to sleeplessness for 3 to 4 days. Stressors include loss of cellular and landline service, automotive activity around residence, and recent bereavement of father in March 2023. Exhibits rapid speech and talking about many different things quickly under severe duress. Attention and concentration were limited and memory was mostly reliable but no more formally tested. He is alert and oriented times person and place. Insight, judgment and impulse control were limited versus impaired.] Vitals/I&O/Wt Last Vital Signs Temp 98.9 F 11/23/24 06:00 Pulse 95 11/23/24 06:00 Resp 19 H 11/23/24 06:00 BP 134/91 11/23/24 09:57 Pulse Ox 99 11/23/24 06:00 O2 Del Method Room Air 11/23/24 06:00 Weight last 48 hrs Weight 108.862 kg Data NPU 11/22/24 09:50 11/22/24 09:50 A&P Assessment and plan (1) Acute psychosis: (2) Jayro: (3) Bereavement: Plan This is a 55-year-old white male with a reported history of mental health challenges that he endorses started around the time his father . He reports that these episodes have been mostly related to him being sleep deprived and then having some kind of response to that. He presents today reporting that he has not slept in about 4 days secondary to some strange circumstances. We discussed him seeming to have presented in jayro which is required him to receive as needed medication because he is gotten so worked up. No addiction issues reported. 1. Consider mood stabilizer for likely jayro 2. Continue every 15 minute checks for safety. 3. Encourage individual, group and milieu therapies. 4. Get collateral information. 5. Evaluate against the backdrop of the 96-hour hold. PDMP PDMP Reviewed: Not Reviewed Involuntary Hold Information Hold Status: Legal Status: 96 Hour Hold Date/Time Hold Expires: 11/29/24 1201 Attestations NPU Medical Necessity Statement*: Inpatient hospitalization is medically necessary and the clinically appropriate intervention at this time. We will monitor/initiate medications and make changes as indicated. Patient will be in the hospital for over 2 midnights. Likely length of stay 5-7 days. Coding Level of Care Code Acute Code for Chg Fwd Diagnoses Acute psychosis F23 Jayro F30.9 Bereavement Z63.4
[2024-11-23 14:00] VITALS: BP 151/86; PULSE 75; RESP 18; O2SAT 99
[2024-11-23 20:13] VITALS: BP 98/57; PULSE 71; RESP 18; TEMP 37.3; O2SAT 98
[2024-11-24] MEDS: hyDROXYzine 25 mg Capsule 50 MG PO (00:27)
[2024-11-24 06:00] VITALS: BP 154/97; PULSE 86; RESP 17; TEMP 37.4; O2SAT 95
[2024-11-24 08:56] VITALS: BP 154/97
[2024-11-24] MEDS: losartan 50 mg Tablet PO (08:56)
[2024-11-24] MEDS: blistex lip oint 7 gm Tube 1 APPLIC TOPICAL (09:01)
[2024-11-24 14:00] VITALS: BP 150/119; PULSE 72; RESP 16; TEMP 36.7; O2SAT 97
[2024-11-24] MEDS: pantoprazole DR 40 mg Tablet PO ×2 (14:15→17:58)
[2024-11-24 14:31] VITALS: BP 154/96
--- NOTE | 2024-11-24 17:13 | P.NPUPN_ITS ---
Subjective NPU 2 Subjective: Patient presented today reporting that he is doing all right. He continued to be somewhat tangential per staff reports and direct observation. When asked the question he takes the long road home and generally does not get home. 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 However he was evasive about how he got to the point he is at now where he is taking care of his mom and not working blaming it on his mom's needs. When asked about how he was able to manage financially he never got around to explaining how he went from working to not working. He continues to be resistant to medication. Mental Status Exam 2 MSE Comments: This is an overweight versus obese white male in hospital scrubs with limited grooming and eye contact. No abnormal movements except for psychomotor agitation. Cooperative with exam in moderate distress. Speech was increased rate and volume and somewhat pressured. Mood described as somewhat down about the loss of his father but otherwise tired, affect congruent and slightly energized. Thought process organized. Thought content: Patient denied suicidal or homicidal ideation, there were no delusions noted or reported, but he did express some reports of circumstances surrounding his admission that seem they could be delusional in nature, he denied current auditory or visual hallucinations but reported some automotive activity outside of his house that led him to have some concerns about safety. Stressors include the of his father and his mother being alone and he reports needing some assistance from him. Reports severe anxiety and unease, contributing to sleeplessness for 3 to 4 days. Stressors include loss of cellular and landline service, automotive activity around residence, and recent bereavement of father in March 2023. Exhibits rapid speech and talking about many different things quickly under severe duress. Attention and concentration were limited and memory was mostly reliable but no more formally tested. He is alert and oriented times person and place. Insight, judgment and impulse control were limited versus impaired.] Vitals/I&O/Wt Last Vital Signs Temp 98.1 F 11/24/24 14:00 Pulse 72 11/24/24 14:00 Resp 16 11/24/24 14:00 BP 154/96 11/24/24 14:31 Pulse Ox 97 11/24/24 14:00 O2 Del Method Room Air 11/24/24 14:00 Data NPU 11/22/24 09:50 11/22/24 09:50 A&P Assessment and plan (1) Acute psychosis: (2) Ramona: (3) Bereavement: Plan This is a 55-year-old white male with a reported history of mental health challenges that he endorses started around the time his father . He reports that these episodes have been mostly related to him being sleep deprived and then having some kind of response to that. He presents today reporting that he has not slept in about 4 days secondary to some strange circumstances. We discussed him seeming to have presented in ramona which is required him to receive as needed medication because he is gotten so worked up. No addiction issues reported. 1. Consider mood stabilizer for likely ramona 2. Continue every 15 minute checks for safety. 3. Encourage individual, group and milieu therapies. 4. Get collateral information. 5. Evaluate against the backdrop of the 96-hour hold. PDMP PDMP Reviewed: Not Reviewed Involuntary Hold Information 2 Hold Status: Legal Status: 96 Hour Hold Date/Time Hold Expires: 11/29/2024 @ 0001 Attestations NPU 2 Medical Necessity Statement*: Inpatient hospitalization is medically necessary and the clinically appropriate intervention at this time. We will monitor/initiate medications and make changes as indicated. Likely length of stay 4-6 days. Coding Level of Care Code Acute Code for [facility] Fwd Diagnoses Acute psychosis F23 Ramona F30.9 Bereavement Z63.4
[2024-11-24 20:19] VITALS: BP 127/61; PULSE 84; RESP 17; TEMP 37.3; O2SAT 99
[2024-11-24] MEDS: temazepam 15 mg Capsule 30 MG PO (20:49)
--- NOTE | 2024-11-24 20:59 | PC.NURSE ---
Pt. refused Trazodone and Vistaril. Signee wasted medication.
[2024-11-25] VITALS (7 sets, daily range): BP systolic 149–197; BP diastolic 88–112; PULSE 67–82; RESP 16–20; TEMP 36.8–37.2; O2SAT 98–99
--- NOTE | 2024-11-25 08:10 | PC.NURSE ---
LIMITED NURSING ASSESSMENT R/T PATIENT ASLEEP IN BED IN ROOM, NURSING AND HEAT ENGINEERING TEACHER TO ROOM TO ASK PATIENT TO ARISE FOR BREAKFAST. RESP EVEN ET UNLABORED NO S/S OF DISTRESS NOTED. NURSING STAFF WILL REASSESS PATIENT WHEN HE WAKES
[2024-11-25 09:14] LABS: Alanine Aminotransferase 19 U/L (0-41); Albumin Level 4.1 g/dL (3.5-5.2); Alkaline Phosphatase 74 U/L (40-130); Anion Gap 14.6 (5-19); Aspartate Amino Transferase 21 U/L (0-40); Blood Urea Nitrogen 8 mg/dL (6-20); Calcium 9.2 mg/dL (8.5-10.5); Carbon Dioxide 27 mmol/L (22-29); Chloride 99 mmol/L (98-107); Creatinine Clr Calc Pharmacy 116.8025; Globulin 2.7 g/dL (1.3-4.6); Glomerular Filtration Rate 87.3 mL/min (90-130); Glucose 107 mg/dL (65-115); Osmolality Calculated 281 mOsm/kg (285-295); Potassium 4.6 mmol/L (3.5-5.1); Sodium 136 mmol/L (136-145); Thyroid Stimulating Hormone 0.88 uIU/mL (0.27-4.20); Total Bilirubin 0.4 mg/dL (0.15-1.2); Total Protein 6.8 g/dL (6.6-8.7)
[2024-11-25] MEDS: losartan 50 mg Tablet PO (11:03)
--- NOTE | 2024-11-25 11:05 | PC.NURSE ---
refused scheduled meds Protonix and Linzess. patient stated he couldn't take Linzess because he had already eaten breakfast, and stated the Protonix should be on an as needed basis and he didn't feel like his acid level was off at the moment
[2024-11-25] MEDS: pantoprazole DR 40 mg Tablet PO (16:13)
[2024-11-25] MEDS: hyDRALAzine 10 mg Tablet PO (16:39)
--- NOTE | 2024-11-25 16:42 | PC.NURSE ---
prn Hydralazine 10 mg given po per pt elevated blood pressure of 199/120
--- NOTE | 2024-11-25 17:02 | P.NPUPN_ITS ---
Subjective NPU 2 Subjective: Patient presented today reporting a desire to leave. He continued to be quite guarded per staff reports and direct observation. Simple questions led to long discourse is secondary to his guardedness per staff reports and direct communication. At 1 point in the interview he talked about feeling like some people were trying to take advantage of him and his mother since his father's and he was very secretive and not wanting to say what kind of people of these were like family members or neighbors excetra. And then this commercial real estate underwriter ask if he had any siblings and he got very upset and said he did not want to talk about that subject. He wondered why this commercial real estate underwriter would ask a question like that. We discussed the fact that it asking about family make up as a question that is asked of every patient that enters this unit the same as when I asked him about his employment history and he was very guarded and said he did not understand the line of questioning. He continues to be resistant to any medication trial. Mental Status Exam 2 MSE Comments: This is an overweight versus obese white male in hospital scrubs with limited grooming and eye contact. No abnormal movements except for psychomotor agitation. Cooperative with exam in moderate distress. Speech was increased rate and volume and somewhat pressured. Mood described as somewhat down about the loss of his father but otherwise tired, affect congruent and slightly energized. Thought process organized. Thought content: Patient denied suicidal or homicidal ideation, there were no delusions noted or reported, but he did express some reports of circumstances surrounding his admission that seem they could be delusional in nature, he denied current auditory or visual hallucinations but reported some automotive activity outside of his house that led him to have some concerns about safety. Stressors include the of his father and his mother being alone and he reports needing some assistance from him. Reports severe anxiety and unease, contributing to sleeplessness for 3 to 4 days. Stressors include loss of cellular and landline service, automotive activity around residence, and recent bereavement of father in March 2023. Exhibits rapid speech and talking about many different things quickly under severe duress. Attention and concentration were limited and memory was mostly reliable but no more formally tested. He is alert and oriented times person and place. Insight, judgment and impulse control were limited versus impaired.] Vitals/I&O/Wt Last Vital Signs Temp 98.9 F 11/25/24 14:00 Pulse 72 05/29/25 14:00 Resp 16 11/25/24 14:00 BP 190/112 11/25/24 14:00 Pulse Ox 98 11/25/24 14:00 O2 Del Method Room Air 11/25/24 14:00 Data NPU 11/22/24 09:50 11/25/24 08:35 A&P Assessment and plan (1) Acute psychosis: (2) Ramona: (3) Bereavement: Plan This is a 55-year-old white male with a reported history of mental health challenges that he endorses started around the time his father . He reports that these episodes have been mostly related to him being sleep deprived and then having some kind of response to that. He presents today reporting that he has not slept in about 4 days secondary to some strange circumstances. We discussed him seeming to have presented in ramona which is required him to receive as needed medication because he is gotten so worked up. No addiction issues reported. 1. Consider mood stabilizer for likely ramona 2. Continue every 15 minute checks for safety. 3. Encourage individual, group and milieu therapies. 4. Get collateral information. 5. Evaluate against the backdrop of the 96-hour hold. PDMP PDMP Reviewed: Not Reviewed Involuntary Hold Information 2 Hold Status: Legal Status: 96 Hour Hold Date/Time Hold Expires: 11/29/2024 @ 0001 Attestations NPU 2 Medical Necessity Statement*: Inpatient hospitalization is medically necessary and the clinically appropriate intervention at this time. We will monitor/initiate medications and make changes as indicated. Likely length of stay 2-5 days. Coding Level of Care Code Acute Code for [facility] Fwd Diagnoses Acute psychosis F23 Ramona F30.9 Bereavement Z63.4
[2024-11-25] MEDS: losartan 50 mg Tablet 25 MG PO (17:57)
--- NOTE | 2024-11-25 19:31 | PC.NURSE ---
Pt. anxious to DC. Signee asked pt. about his sister and if signee could get her and talk with her. Pt. became very paranoid wanting to know what it was about and said I just don't want any answer to go against me. Signee informed pt. that was fine if he did not want to answer, but pt. kept bringing it back up wanting to know why anyone would want to talk to his sister about him.
--- NOTE | 2024-11-25 19:35 | PC.NURSE ---
BOOM BOSS reported that pt. wanted to report to someone that a staff member was asking inappropriate questions about his sister. Pt. told BOOM BOSS that [place], but pt.'s sister was here today visiting him.
--- NOTE | 2024-11-25 19:43 | PC.NURSE ---
Signee called Dr. Crowley to report BP of 197/105 after receiving a 10mg dose of hydralazine and [place]. Dr. Crowley gave the order to give a one x dose of Hydralazine 25mg PO now.
[2024-11-25] MEDS: hyDRALAzine 25 mg Tablet PO (20:05)
--- NOTE | 2024-11-25 20:06 | PC.NURSE ---
After informing the of his high BP and the one time order for hydralazine 25mg PO. Pt. was very reluctant to take the pill wanting to know other options it became a 15-20 min ordeal. Another nurse had to come over and help calm pt. down. Another pt. also informed pt. that they took this medication and it was completely safe.
[2024-11-25] MEDS: temazepam 15 mg Capsule 30 MG PO (22:06)
--- NOTE | 2024-11-25 22:07 | PC.NURSE ---
pt. refused the trazodone. Signee wasted the medication
[2024-11-26 06:00] VITALS: BP 168/101; PULSE 76; RESP 18; TEMP 37.3; O2SAT 98
[2024-11-26 07:00] VITALS: BP 168/101
[2024-11-26] MEDS: NON-FORMULARY MEDICATION (Linaclotide [Linzess] 145 mcg capsule) 145 EACH PO (07:00)
[2024-11-26] MEDS: losartan 50 mg Tablet PO (07:00)
[2024-11-26] MEDS: pantoprazole DR 40 mg Tablet PO ×2 (07:00→17:11)
--- NOTE | 2024-11-26 07:20 | PC.NURSE ---
pt requesting medication administration early today.
--- NOTE | 2024-11-26 08:37 | P.NPUPN_ITS ---
Subjective NPU 2 Subjective: Patient presented today reporting he is doing okay. He continues to be eccentric and give reference to things that seem much higher than they are. He attach that significance to being moved from the north side to the south side abruptly and with no clear warning or reason. We discussed the fact that people are moved from rooms to different rooms all the time just dealing with the logistics and changes of the mill you and the patient population through gender and things of that nature but he just went on about how strange it was that this change was made. Identified for him that is not strange is just been probably new and odd for him that it happened and that it had not happened prior to today. He continues to deny any need for medication. Mental Status Exam 2 MSE Comments: This is an overweight versus obese white male in hospital scrubs with limited grooming and eye contact. No abnormal movements except for psychomotor agitation. Cooperative with exam in moderate distress. Speech was increased rate and volume and somewhat pressured. Mood described as somewhat down about the loss of his father but otherwise tired, affect congruent and slightly energized. Thought process organized. Thought content: Patient denied suicidal or homicidal ideation, there were no delusions noted or reported, but he did express some reports of circumstances surrounding his admission that seem they could be delusional in nature, he denied current auditory or visual hallucinations but reported some automotive activity outside of his house that led him to have some concerns about safety. Stressors include the of his father and his mother being alone and he reports needing some assistance from him. Reports severe anxiety and unease, contributing to sleeplessness for 3 to 4 days. Stressors include loss of cellular and landline service, automotive activity around residence, and recent bereavement of father in March 2023. Exhibits rapid speech and talking about many different things quickly under severe duress. Attention and concentration were limited and memory was mostly reliable but no more formally tested. He is alert and oriented times person and place. Insight, judgment and impulse control were limited versus impaired.] Vitals/I&O/Wt Last Vital Signs Temp 99.1 F 11/26/24 06:00 Pulse 76 11/26/24 06:00 Resp 18 11/26/24 06:00 BP 168/101 11/26/24 07:00 Pulse Ox 98 11/26/24 06:00 O2 Del Method Room Air 11/26/24 06:00 Data NPU 11/22/24 09:50 11/25/24 08:35 A&P Assessment and plan (1) Acute psychosis: Patient currently being admitted to the neuro psychiatry unit for acute psychosis. (2) Chronic hypertension: Patient's blood pressure is currently better controlled after having received multiple medications in the emergency room as noted above. Hold off on any further medications today Resume home dose of losartan 50 mg p.o. daily starting tomorrow morning. Will make further treatment decisions based on blood pressure trend on home dose of losartan Suspect that currently high blood pressures may be related to noncompliance with medications recently. (3) Ramona: (4) Bereavement: Plan This is a 55-year-old white male with a reported history of mental health challenges that he endorses started around the time his father . He reports that these episodes have been mostly related to him being sleep deprived and then having some kind of response to that. He presents today reporting that he has not slept in about 4 days secondary to some strange circumstances. We discussed him seeming to have presented in ramona which is required him to receive as needed medication because he is gotten so worked up. No addiction issues reported. 1. Consider mood stabilizer for likely ramona 2. Continue every 15 minute checks for safety. 3. Encourage individual, group and milieu therapies. 4. Get collateral information. 5. Evaluate against the backdrop of the 96-hour hold. 6. Submitted 21-day hold paperwork. PDMP PDMP Reviewed: Not Reviewed Involuntary Hold Information 2 Hold Status: Legal Status: 96 Hour Hold Date/Time Hold Expires: 11/29/2024 @ 0001 Attestations NPU 2 Medical Necessity Statement*: Inpatient hospitalization is medically necessary and the clinically appropriate intervention at this time. We will monitor/initiate medications and make changes as indicated. Likely length of stay 2-5 days. Coding Level of Care Code Acute Code for [facility] Fwd Diagnoses Acute psychosis F23 Chronic hypertension I10 Ramona F30.9 Bereavement Z63.4
[2024-11-26 14:00] VITALS: BP 198/117; PULSE 69; RESP 16; TEMP 36.6; O2SAT 98
--- NOTE | 2024-11-26 14:03 | P.PN_ITS ---
Subjective 2 Subjective: Patient's chart has been reviewed. His blood pressure yesterday evening was as high as 190/110. Patient was ordered for hydralazine, however he stated he preferred to take extra doses of losartan IV and try a new medication. He received an extra dose of 25 mg losartan. This morning his blood pressure was 168/101. Medications: Reviewed: Yes Vitals/I&O/Wt Last Vital Signs Temp 99.1 F 11/26/24 06:00 Pulse 76 11/26/24 06:00 Resp 18 11/26/24 06:00 BP 168/101 11/26/24 07:00 Pulse Ox 98 11/26/24 06:00 O2 Del Method Room Air 11/26/24 06:00 Physical Exam 2 Narrative: General: No acute distress HEENT: PERRLA, pupils bilaterally equal and reactive, pallors not present Chest: Normal vesicular breath sounds, no added sounds, equal good air entry bilaterally CVS: S1-S2 regular, no murmurs, no tachycardia, no gallops, no rubs Abdomen: Soft, nontender, no organomegaly, bowel sounds present Neuro: No focal neurological deficits. Data 11/22/24 09:50 11/25/24 08:35 A&P Assessment and plan (1) Acute psychosis: Patient currently being admitted to the neuro psychiatry unit for acute psychosis. (2) Chronic hypertension: Patient's blood pressure is currently better controlled after having received multiple medications in the emergency room as noted above. Hold off on any further medications today Resume home dose of losartan 50 mg p.o. daily starting tomorrow morning. Will make further treatment decisions based on blood pressure trend on home dose of losartan Suspect that currently high blood pressures may be related to noncompliance with medications recently. Plan November 26, 2024 Patient is currently on losartan 50 mg p.o. daily in keeping with his home dosing. Per review of blood pressure charting, prior to yesterday his evening blood pressures were as low as 99-100 systolic. Therefore hesitant to increase the dose of losartan. As needed hydralazine has been ordered for systolic blood pressure greater than 160, however it is very difficult to convince patient to take the hydralazine as he is suspicious of having new medications added on it. He does not want to try amlodipine as he reports prior side effects of dry cough with this medicine. Discussed with him potentially starting nifedipine as an alternative. Currently he seems amenable to trial of nifedipine therefore this has been ordered for p.m. use for systolic blood pressure greater than 150. Will continue to monitor patient's blood pressure charting and make further adjustments as necessary. PDMP PDMP Reviewed: Not Reviewed Attestations 2 Medical Necessity Statement*: Per admitting Coding Level of Care Code Acute Code for [facility] Fwd Diagnoses Acute psychosis F23 Chronic hypertension I10
[2024-11-26] MEDS: NIFEdipine ER (24 hr) 30 mg Tablet PO (16:41)
[2024-11-26 19:55] VITALS: BP 157/97; PULSE 87; RESP 20; O2SAT 97
[2024-11-26] MEDS: temazepam 15 mg Capsule 30 MG PO (22:09)
[2024-11-27 05:29] VITALS: RESP 16
[2024-11-27 08:47] VITALS: BP 157/97
[2024-11-27] MEDS: losartan 50 mg Tablet PO (08:47)
--- NOTE | 2024-11-27 11:19 | P.NPUPN_ITS ---
Subjective NPU 2 Subjective: Patient presented today reporting that things are going all right. He identified that he had been guarded with telling this group underwriter basic pieces of information that were being requested. We discussed some of his history at length as far as his concerns for family dynamics and he revealed a clear indication that there have been at least some concerns by his father about his having some disability because any inheritance that he receives would be managed by a trust. This flies in the face of some of the stories he is told which suggested that he was trading stocks and things like that. He was able to identify that he has a lot of shame about being less functional than his age and intelligence would suggest. But then he was very resistant to the idea that there was anything going on with him. Continued to be resistant to medication. Mental Status Exam 2 MSE Comments: This is an overweight versus obese white male in hospital scrubs with limited grooming and eye contact. No abnormal movements except for psychomotor agitation. Cooperative with exam in moderate distress. Speech was increased rate and volume and somewhat pressured. Mood described as somewhat down about the loss of his father but otherwise tired, affect congruent and slightly energized. Thought process organized. Thought content: Patient denied suicidal or homicidal ideation, there were no delusions noted or reported, but he did express some reports of circumstances surrounding his admission that seem they could be delusional in nature, he denied current auditory or visual hallucinations but reported some automotive activity outside of his house that led him to have some concerns about safety. Stressors include the of his father and his mother being alone and he reports needing some assistance from him. Reports severe anxiety and unease, contributing to sleeplessness for 3 to 4 days. Stressors include loss of cellular and landline service, automotive activity around residence, and recent bereavement of father in March 2023. Exhibits rapid speech and talking about many different things quickly under severe duress. Attention and concentration were limited and memory was mostly reliable but no more formally tested. He is alert and oriented times person and place. Insight, judgment and impulse control were limited versus impaired.] Vitals/I&O/Wt Last Vital Signs Temp 97.9 F 11/26/24 14:00 Pulse 87 11/26/24 19:55 Resp 16 11/27/24 05:29 BP 157/97 11/27/24 08:47 Pulse Ox 97 11/26/24 19:55 O2 Del Method Room Air 11/26/24 14:00 Data NPU 11/22/24 09:50 11/25/24 08:35 A&P Assessment and plan (1) Acute psychosis: Patient currently being admitted to the neuro psychiatry unit for acute psychosis. (2) Chronic hypertension: Patient's blood pressure is currently better controlled after having received multiple medications in the emergency room as noted above. Hold off on any further medications today Resume home dose of losartan 50 mg p.o. daily starting tomorrow morning. Will make further treatment decisions based on blood pressure trend on home dose of losartan Suspect that currently high blood pressures may be related to noncompliance with medications recently. (3) Ramona: (4) Bereavement: Plan This is a 55-year-old white male with a reported history of mental health challenges that he endorses started around the time his father . He reports that these episodes have been mostly related to him being sleep deprived and then having some kind of response to that. He presents today reporting that he has not slept in about 4 days secondary to some strange circumstances. We discussed him seeming to have presented in ramona which is required him to receive as needed medication because he is gotten so worked up. No addiction issues reported. Patient more forthcoming with information and has clearly been limited in his ability to take care of himself throughout his life such that his parents generally manage his finances and he has some concerns consistent with possible cluster a personality disorder versus autism. 1. Consider mood stabilizer for likely ramona 2. Continue every 15 minute checks for safety. 3. Encourage individual, group and milieu therapies. 4. Get collateral information. 5. Evaluate against the backdrop of the 96-hour hold. 6. Submitted 21-day hold paperwork. PDMP PDMP Reviewed: Not Reviewed Involuntary Hold Information 2 Hold Status: Legal Status: 96 Hour Hold Date/Time Hold Expires: 11/29/2024 @ 0001 Attestations NPU 2 Medical Necessity Statement*: Inpatient hospitalization is medically necessary and the clinically appropriate intervention at this time. We will monitor/initiate medications and make changes as indicated. Likely length of stay 2-5 days. Coding Level of Care Code Acute Code for [facility] Fwd Diagnoses Acute psychosis F23 Chronic hypertension I10 Ramona F30.9 Bereavement Z63.4
[2024-11-27 14:00] VITALS: BP 163/90; PULSE 86; RESP 18; TEMP 37.6; O2SAT 93
--- NOTE | 2024-11-27 16:19 | PM.MISC ---
Miscellaneous Note Purpose of Documentation: BP chart reveiwed. 157/87mmhg. Patient received nifedipine 30mg last evening. Continue po losartan in am. Po nifedipine in pm. Continue to maintain BP chart, will increase nifedipine dosing if needing further optimization
[2024-11-27] MEDS: NIFEdipine ER (24 hr) 30 mg Tablet PO (17:35)
[2024-11-27] MEDS: pantoprazole DR 40 mg Tablet PO (17:35)
[2024-11-27 20:12] VITALS: BP 153/89; BP 163/99; PULSE 76; RESP 18; TEMP 36.6; O2SAT 97
[2024-11-27] MEDS: temazepam 15 mg Capsule 30 MG PO (21:39)
[2024-11-27] MEDS: hyDRALAzine 10 mg Tablet PO (21:39)
[2024-11-28 06:00] VITALS: BP 153/92; PULSE 73; RESP 16; O2SAT 99; BMI 20.9
[2024-11-28] MEDS: pantoprazole DR 40 mg Tablet PO ×2 (08:33→18:16)
[2024-11-28] MEDS: losartan 50 mg Tablet PO (08:33)
--- NOTE | 2024-11-28 12:49 | P.PN_ITS ---
Subjective 2 Subjective: No acute interim events. Reviewed blood pressure chart with systolic blood pressure ranging between 153-167. Medications: Reviewed: Yes Vitals/I&O/Wt Last Vital Signs Temp 97.8 F 11/27/24 20:12 Pulse 73 11/28/24 06:00 Resp 16 11/28/24 06:00 BP 153/92 11/28/24 06:00 Pulse Ox 99 11/28/24 06:00 O2 Del Method Room Air 11/28/24 06:00 Weight last 48 hrs Weight 70.023 kg Physical Exam 2 Narrative: General: No acute distress HEENT: PERRLA, pupils bilaterally equal and reactive, pallors not present Chest: Normal vesicular breath sounds, no added sounds, equal good air entry bilaterally CVS: S1-S2 regular, no murmurs, no tachycardia, no gallops, no rubs Abdomen: Soft, nontender, no organomegaly, bowel sounds present Neuro: No focal neurological deficits. Data 11/22/24 09:50 11/25/24 08:35 A&P Assessment and plan (1) Acute psychosis: Patient currently being admitted to the neuro psychiatry unit for acute psychosis. (2) Chronic hypertension: Patient's blood pressure is currently better controlled after having received multiple medications in the emergency room as noted above. Hold off on any further medications today Resume home dose of losartan 50 mg p.o. daily starting tomorrow morning. Will make further treatment decisions based on blood pressure trend on home dose of losartan Suspect that currently high blood pressures may be related to noncompliance with medications recently. Plan November 26, 2024 Patient is currently on losartan 50 mg p.o. daily in keeping with his home dosing. Per review of blood pressure charting, prior to yesterday his evening blood pressures were as low as 99-100 systolic. Therefore hesitant to increase the dose of losartan. As needed hydralazine has been ordered for systolic blood pressure greater than 160, however it is very difficult to convince patient to take the hydralazine as he is suspicious of having new medications added on it. He does not want to try amlodipine as he reports prior side effects of dry cough with this medicine. Discussed with him potentially starting nifedipine as an alternative. Currently he seems amenable to trial of nifedipine therefore this has been ordered for p.m. use for systolic blood pressure greater than 150. Will continue to monitor patient's blood pressure charting and make further adjustments as necessary. 11/27/2024 BP chart reveiwed. 157/87mmhg. Patient received nifedipine 30mg last evening. Continue po losartan in am. Po nifedipine in pm. Continue to maintain BP chart, will increase nifedipine dosing if needing further optimization November 28, 2024 Blood pressure chart reviewed. Systolic blood pressure ranging between 153-160 systolic. Increase losartan to 75 mg p.o. daily. Continue nifedipine 30 mg in the evening. Will continue monitoring BP chart for further optimization as needed PDMP PDMP Reviewed: Not Reviewed Attestations 2 Medical Necessity Statement*: Per admitting Coding Level of Care Code Acute Code for Chg Fwd Diagnoses Acute psychosis F23 Chronic hypertension I10
[2024-11-28 14:00] VITALS: BP 157/89; PULSE 96; RESP 17; TEMP 36.6; O2SAT 98
--- NOTE | 2024-11-28 16:28 | P.NPUPN_ITS ---
Subjective NPU 2 Subjective: Patient presented and continued to report that he was doing fine. He continued to remain hesitant about needing medications. He had continued to ramble incessantly about his various jobs and his particular history of caring for his mother and reported some stress from the the of his father many years ago. He had reported that he had many projects to work on and stated that he had not been sleeping for several days prior to his admission here. The patient had reported that he had always been supported by his family. He had reported that he had been taking temazepam at night for sleep. He had expressed hope that he would be able to leave here soon. He had been unable to describe what his situation was like that had led to him being hospitalized here. Mental Status Exam 2 MSE Comments: This is an overweight versus obese white male in hospital scrubs with limited grooming and eye contact. He was intrusive at times with limited boundaries. No abnormal movements except for mild psychomotor agitation. He was cooperative with exam in moderate distress. Speech was increased in rate and volume and somewhat pressured. Mood described as fine. His affect was intense and almost euphoric. Thought process was circumstantial and overly inclusive. Thought content: Patient denied suicidal or homicidal ideation. but he did express some reports of circumstances surrounding his admission that seem they could be delusional in nature, he denied current auditory or visual hallucinations. Stressors include the of his father and his mother being alone and he reports needing some assistance from him. He was self centered with some ideas of reference. Reports severe anxiety and unease, contributing to sleeplessness for 3 to 4 days. He is alert and oriented times person and place. Insight was poor. Judgment is poor. Impulse control was poor. Vitals/I&O/Wt Last Vital Signs Temp 97.8 F 11/27/24 20:12 Pulse 73 11/28/24 06:00 Resp 16 11/28/24 06:00 BP 153/92 11/28/24 06:00 Pulse Ox 99 11/28/24 06:00 O2 Del Method Room Air 11/28/24 06:00 Weight last 48 hrs Weight 70.023 kg Data NPU 11/22/24 09:50 11/25/24 08:35 A&P Assessment and plan (1) Acute psychosis: Patient currently being admitted to the neuro psychiatry unit for acute psychosis. (2) Chronic hypertension: Patient's blood pressure is currently better controlled after having received multiple medications in the emergency room as noted above. Hold off on any further medications today Resume home dose of losartan 50 mg p.o. daily starting tomorrow morning. Will make further treatment decisions based on blood pressure trend on home dose of losartan Suspect that currently high blood pressures may be related to noncompliance with medications recently. (3) Ramona: (4) Bereavement: Plan This is a 55-year-old white male with a reported history of mental health challenges that he endorses started around the time his father . He reports that these episodes have been mostly related to him being sleep deprived and then having some kind of response to that. He presents today reporting that he has not slept in about 4 days secondary to some strange circumstances. We discussed him seeming to have presented in ramona which is required him to receive as needed medication because he is gotten so worked up. No addiction issues reported. Patient more forthcoming with information and has clearly been limited in his ability to take care of himself throughout his life such that his parents generally manage his finances and he has some concerns consistent with possible cluster a personality disorder versus autism. 1. Consider mood stabilizer for likely ramona 2. Continue every 15 minute checks for safety. 3. Encourage individual, group and milieu therapies. 4. Get collateral information. 5. Evaluate against the backdrop of the 96-hour hold. 6. Submitted 21-day hold paperwork. Encourage Temazepam 30mg at night as prescribed. Monitor sleep. PDMP PDMP Reviewed: Not Reviewed Involuntary Hold Information 2 Hold Status: Legal Status: 96 Hour Hold Date/Time Hold Expires: 11/29/2024 @ 0001 Attestations NPU 2 Medical Necessity Statement*: Inpatient hospitalization is medically necessary and the clinically appropriate intervention at this time. We will monitor/initiate medications and make changes as indicated. Likely length of stay 2-5 days. Coding Level of Care Code Acute Code for Chg Fwd Diagnoses Acute psychosis F23 Chronic hypertension I10 Ramona F30.9 Bereavement Z63.4
[2024-11-28] MEDS: NIFEdipine ER (24 hr) 30 mg Tablet PO (18:16)
[2024-11-28 20:18] VITALS: BP 154/94; PULSE 74; RESP 19; TEMP 36.4; O2SAT 96
[2024-11-28] MEDS: temazepam 15 mg Capsule 30 MG PO (20:20)
--- NOTE | 2024-11-29 00:12 | PC.NURSE ---
PAtient tonight was quite intrusive this shift. He interupted patient care with another patient on the unit just so he could discuss his reason for being here and how staff is treating him. He exhibited pressured animated speech and was difficult to direct. His affect is bewildered at times. He verbalized disappointment that he is still here and continues to ask this RN how he can be discharged. He voices concerns over HIPAA and was upset that his sister was talking with the physician and his mother this afternoon during visitation. He denies SI/HI/AVH, intrusive thoughts, anxiety and depression.
[2024-11-29 06:00] VITALS: BP 126/84; PULSE 77; RESP 19; TEMP 37; O2SAT 100
[2024-11-29 07:16] VITALS: BP 180/90
[2024-11-29] MEDS: losartan 50 mg Tablet 75 MG PO (07:16)
--- NOTE | 2024-11-29 08:15 | PC.NURSE ---
Pt. rocking back and forth in chair in dayroom while talking to another pt.
--- NOTE | 2024-11-29 14:28 | P.NPUDS_ITS ---
Diagnoses at Discharge Discharge Diagnosis (1) Acute psychosis: Status: Acute (2) Chronic hypertension: Status: Acute (3) Jayro: Status: Acute (4) Bereavement: Status: Acute Reason for Visit Reason for Visit: MHE EVAL Brief History: History of Present Illness Lencho Barger is a 54 year old male who presented to the emergency department with the following report: HPI - Psych General: Chief Complaint: Psychiatric Symptoms Stated Complaint: MHE EVAL Time Seen by Provider: 11/22/24 09:18 Source: patient and EMS Mode of arrival: EMS Limitations: altered mental status History of Present Illness: Patient is a 54-year-old male presents to ED today via EMS for mental health evaluation. Upon arrival patient is acutely psychotic hide no history can essentially be derived from him. His speech is excessive, pressured, extremely tangential, illogical. Looking at previous documentation, he was here for a medical related complaint about a week or so ago. I was able to contact his mother who stated that over the past few days he has been very paranoid thinking that somebody is outside their home at night. He is thinking that his phone got scammed and is now being tracked. She states that he has been talking 90 miles an hour and has not slept in several days. Mother seems to think he has maybe had one similar episode to which she was hospitalized at [facility]. He has no known/diagnosed psychiatric illnesses that she is aware of and does not take any psychiatric medication. Mother does state he takes a lot of non- prescription medication . [facility] records were obtained and it looks like patient was there back in 01/2024 for almost identical symptoms. Documentation states he was hyperverbal, tangential, hyperactive, fidgety with reported insomnia. He was extremely hypertensive at that visit as well. Looking at previous vital signs here, patient has a longstanding history of chronic hypertension. He was admitted to the neuropsychiatric unit for definitive treatment of those issues. Though he has been a difficult historian as staff reports significant difficulties with his ability to tell a story and maintain calm and not be hyper energized. Ultimately he received as needed medication this morning prior to shift change due to him being so distraught and hyperkinetic and intrusive. He was somewhat tired and had to be awoken for his evaluation at on multiple attempts. He presented with a negative UDS and no medical signs to explain his mostly manic state. Once he was awoken he told a fairly disconnected story as reported below: Chief complaint Severe anxiety and insomnia following a distressing experience of feeling unsafe and isolated for several days. History of the present complaint The patient reports experiencing a severe sense of fear and anxiety, which has kept them awake for approximately 3 to 4 days. This fear was exacerbated by the loss of cellular and landline phone service, leaving them unable to call for help or drive to safety due to sleep deprivation. The patient describes constant automotive activity around their residence, which heightened their sense of insecurity and contributed to ongoing panic and alarm. These circumstances led to significant anxiety and unease, culminating in a feeling of being unsafe. The patient mentions staying with their mother, who cannot drive, and expresses concern about their own ability to drive safely due to sleep loss. They recount a situation where they felt compelled to stay awake for several days due to the perceived threat and lack of communication options. The patient did not voluntarily come to the hospital; they were placed on a hold, although they are unsure who initiated it, suspecting it might have been their mother. The patient has a history of a previous psychiatric hospital admission in January of the previous year. This admission followed the of their father in March 2023, which was described as agonizing and devastating. The loss was particularly difficult due to the close relationship with their father, whom they regarded as a central figure in their life. Following this loss, the patient stayed with their mother, experiencing a dark and grieving period marked by feelings of instability. The patient reports having rapid speech and discussing various topics quickly when under severe duress and sleeplessness. This has occurred only under extreme circumstances since 2022. They describe feeling exhausted due to medication given during the current hospitalization and note dehydration since being admitted. The patient has not been working for some time but typically would return to [facility] for work or other activities. They survive financially through an investment account. The patient has no history of marriage or biological children but has had serious relationships. 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 The patient identifies as Quaker and is a person of joey. They have no history of addiction, smoking, drinking, or marijuana use. They report that rapid speech occurs only under extreme duress and sleeplessness, which has happened since 2022 following significant stressors such as the loss of their father. Mental health history Reported a previous hospitalization in a psychiatric facility in January 2024. Experienced significant emotional distress following the of father in March 2023, which was described as a life-altering trauma. No history of psychiatric hospitalizations prior to 2022. Rapid speech and heightened anxiety noted during periods of severe stress and sleep deprivation, first occurring in 2022. No history of addiction, smoking, drinking, or cannabis use. No current psychiatric medications. Social history Staying with mother since the loss of father in March 2023. No employment mentioned, but survives on an investment account. No history of marriage or biological children. 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 Identifies as a Quaker and a person of joey. No history of addiction, smoking, drinking, or cannabis use. No service. No explicit mention of exercise or diet. Hospital Course Hospital Course During the hospitalization, the patient had routine laboratory studies which were within normal limits except for a few outliers.? Additionally, there was a general medical evaluation which was also within normal limits and revealed no new acute processes.? At the time of discharge, lethality was denied and psychosis was resolving.? Mood and anxiety were well managed.? The patient endorsed a plan to avoid all drugs of abuse and follow up with the aftercare recommendations of the treatment team.? The patient was evaluated and deemed to be absent credible lethality and had achieved the maximum benefit from an inpatient hospitalization, and so was discharged. ?The patient gradually showed improvement in regards to sleep. He no longer showed evidence of psychosis or jayro. He had refused any medication to add for mood stabilization He had reported having chronic problems with anxiety. The patient was evaluated and a [facility] Autism Asperger Diagnostic Scale was completed and the patient scored 180 which was highly supportive of the diagnosis of Autistic Spectrum Disorder. He had shown signficant evidence of substantial social skills deficit, with noted difficulties with social relatedness and some evidence of circumscribed interests. Involuntary Hold Information Hold Status: Legal Status: 96 Hour Hold Date/Time Hold Expires: 11/29/2024 @ 0001 Mental Status Exam MSE Comments: This is an overweight versus obese white male in hospital scrubs with limited grooming and eye contact. He was intrusive at times with limited boundaries. No abnormal movements except for mild psychomotor activation. He was cooperative with exam in no acute distress on discharge. Speech was productive but linear and logical. Mood described as fine. His affect was intense and almost euphoric. Thought process was circumstantial and overly inclusive. Thought content: Patient denied suicidal or homicidal ideation. but he did express some reports of circumstances surrounding his admission that seem they could be delusional in nature, he denied current auditory or visual hallucinatio ns. Stressors include the of his father and his mother being alone and he reports needing some assistance from him. He was self centered with some ideas of reference. Patient reports reduction in anxiety. He is alert and oriented times person and place. Insight was poor. Judgment is limited. Impulse control was fair. Discharge Data Studies Completed and Pending: Completed Studies During Hospitalization Category Date Time Status CT head wo con* [id number] Urgent Cat Scan 11/22/24 09:43 Completed XR chest 1V jolie ble [id number] Urgent Exams 11/22/24 09:37 Completed Radiology Impressions Chest X-Ray 11/22/24 09:37 IMPRESSION: No acute findings. Head CT 11/22/24 09:43 IMPRESSION: No acute intracranial abnormality. Laboratory Results WBC 7.40 10^3/uL (3.2 9-11.43) 11/22/24 09:50 RBC 3.59 10^6/uL (3.8 5-5.65) L 11/22/24 09:50 Hgb 11.30 g/dL (11.27 -16.99) 11/22/24 09:50 Hct 32.8 % (37-53) L 11/22/24 09:50 MCV 91.4 fl (82-101) 11/22/24 09:50 MCH 31.5 pg (27-33) 11/22/24 09:50 MCHC 34.5 g/dL (30-55) 11/22/24 09:50 RDW 12.9 % (12.1-15.1 ) 11/22/24 09:50 Plt Count 304 10^3/cmm (157 -399) 11/22/24 09:50 MPV 9.2 fL (7.4-10.4) 11/22/24 09:50 Neut % (Auto) 81.4 % 11/22/24 09:50 Lymph % (Auto) 9.9 % 11/22/24 09:50 Alpine % (Auto) 8.0 % 11/22/24 09:50 Eos % (Auto) 0.3 % 11/22/24 09:50 Baso % (Auto) 0.3 % 11/22/24 09:50 Neut # (Auto) 6.03 10^3/uL (1.8 -7.7) 11/22/24 09:50 Lymph # (Auto) 0.7 10^3/uL (0.8- 4.8) L 11/22/24 09:50 Alpine # (Auto) 0.6 10^3/uL (0.2- 0.9) 11/22/24 09:50 Eos # (Auto) 0.0 10^3/uL (0.0- 0.8) 11/22/24 09:50 Baso # (Auto) 0.0 10^3/uL (0.0- 0.1) 11/22/24 09:50 Nucleated RBC % (a uto) 0 % 11/22/24 09:50 Nucleated RBCs # 0.0 /100WBC 11/22/24 09:50 Sodium 136 mmol/L (136-1 45) 11/25/24 08:35 Potassium 4.6 mmol/L (3.5-5 .1) 11/25/24 08:35 Chloride 99 mmol/L (98-107 ) 11/25/24 08:35 Carbon Dioxide 27 mmol/L (22-29) 11/25/24 08:35 Anion Gap 14.6 (5-19) 11/25/24 08:35 BUN 8 mg/dL (6-20) 11/25/24 08:35 Creatinine 0.9 mg/dL (0.7-1. 2) 11/25/24 08:35 GFR Calculation 87.3 mL/min (90-1 30) L 11/25/24 08:35 Glucose 107 mg/dL (65-115 ) 11/25/24 08:35 Calculated Osmolal ity 281 mOsm/kg (285- 295) L 11/25/24 08:35 Calcium 9.2 mg/dL (8.5-10 .5) 11/25/24 08:35 Total Bilirubin 0.4 mg/dL (0.15-1 .2) 11/25/24 08:35 AST 21 U/L (0-40) 11/25/24 08:35 ALT 19 U/L (0-41) 11/25/24 08:35 Alkaline Phosphata se 74 U/L (40-130) 11/25/24 08:35 Total Protein 6.8 g/dL (6.6-8.7 ) 11/25/24 08:35 Albumin 4.1 g/dL (3.5-5.2 ) 11/25/24 08:35 Globulin 2.7 g/dL (1.3-4.6 ) 11/25/24 08:35 TSH 0.88 uIU/mL (0.27 -4.20) 11/25/24 08:35 Urine Color Yellow (Yellow) 11/22/24 11:15 Urine Appearance Clear (CLEAR) 11/22/24 11:15 Urine pH 6.5 (5-7) 11/22/24 11:15 Ur Specific Gravit y 1.008 (1.005-1.0 30) 11/22/24 11:15 Urine Protein Negative (Negati ve) 11/22/24 11:15 Urine Glucose (UA) Trace (Normal) H 11/22/24 11:15 Urine Ketones Trace (Negative) 11/22/24 11:15 Urine Blood Negative (Negati ve) 11/22/24 11:15 Urine Nitrate Negative (Negati ve) 11/22/24 11:15 Urine Bilirubin Negative (Negati ve) 11/22/24 11:15 Urine Urobilinogen 0.2 mg/dL (Negati ve) 11/22/24 11:15 Ur Leukocyte Mari ase Negative (Negati ve) 11/22/24 11:15 Urine RBC 0-2 /hpf (0-2) 11/22/24 11:15 Urine WBC 0-5 /hpf (0-5) 11/22/24 11:15 Ur Squamous Epith Cells 0-5 /hpf (0-5) 11/22/24 11:15 Amorphous Sediment Not Reportable 11/22/24 11:15 Urine Bacteria None seen /hpf (N ONE) 11/22/24 11:15 Hyaline Casts 2.05 /lpf 11/22/24 11:15 Salicylates < 0.3 mg/dL (3-10 ) L 11/22/24 09:50 Urine Opiates Scre en Negative ng/mL (N egative) 11/22/24 11:15 Acetaminophen < 5.0 ug/mL (10-3 0) L 11/22/24 09:50 Ur Barbiturates Sc reen Negative ng/mL (N egative) 11/22/24 11:15 Ur Phencyclidine S crn Negative ng/mL (N egative) 11/22/24 11:15 Ur Amphetamines Sc reen Negative ng/mL (N egative) 11/22/24 11:15 U Benzodiazepines Scrn Positive ng/mL (N egative) H 11/22/24 11:15 Urine Cocaine Scre en Negative ng/mL (N egative) 11/22/24 11:15 U Marijuana (THC) Screen Negative ng/mL (N egative) 11/22/24 11:15 Ethyl Alcohol < 10 mg/dL (0-10) 11/22/24 09:50 Vitals: Last Vital Signs Temp 98.6 F 11/29/24 06:00 Pulse 77 11/29/24 06:00 Resp 19 H 11/29/24 06:00 BP 180/90 11/29/24 07:16 Pulse Ox 100 11/29/24 06:00 O2 Del Method Room Air 11/29/24 06:00 Discharge Plan Discharge Patient Disposition: Home Condition: Stable Prescriptions: Continued losartan 50 mg tablet 50 mg PO DAILY hydroxyzine HCl 25 mg tablet 25 mg PO QID PRN (Reason: Anxiety) Linzess 145 mcg capsule 145 mcg PO DAILY temazepam 15 mg capsule 30 mg PO BEDTIME Discharge Orders: Discharge Order (Routine); Ordered 11/29/24 Ordered By: Kiran Power Referrals: [facility] [Outside] - 1-3 days Referral Note: You will be contacted for follow up services Discharge Diet: Usual diet Discharge Activity: Resume usual activity Patient Instructions: Depression (DC), Help Prevent Suicide (DC), Opioid Safety Discharge Attestations NPU Time Spent in Discharge Care*: less than 30 min Specific Discharge Activities: Specific discharge activities: educating patient, discussing with trimming caser/social workers/dc planners and docume nting/other paperwork Coding Level of Care Code Acute Code for Chg Fwd Diagnoses Acute psychosis F23 Chronic hypertension I10 Jayro F30.9 Bereavement Z63.4
[2024-11-29 14:49] VITALS: BP 180/90; PULSE 77; RESP 19; TEMP 37; O2SAT 98
[2024-11-29 15:07] VITALS: BP 126/84; PULSE 79; RESP 16; TEMP 37; O2SAT 100
== END 2024-11-29 16:48 | disposition home or self-care (01) | DRG 885 ==
LOC: ER 12:56 → NP 13:04
PROVIDERS: Student in an Organized Health Care Education/Training Program; Admitting Provider Psychiatry & Neurology Psychiatry; Emergency Provider Physician Assistant; Visit Provider Psychiatry & Neurology Psychiatry
DX: F23 Brief psychotic disorder (principal); I10 Essential (primary) hypertension; F30.9 Manic episode, unspecified; Z63.4 Disappearance and death of family member; F41.9 Anxiety disorder, unspecified; G47.00 Insomnia, unspecified
CPT/HCPCS: 36415; 70450; 71045; 80053; 80306; 80307; 81001; 84443; 85025; 96374; 96375; 97150; 97165; 99285; J0360; J3490; J9999; Q0163